=== PATIENT | female | born 1945 | race Caucasian/White ===

== ENCOUNTER → 2017-08-12 | Day surgery (SDC) | payer MEDICARE ==
[~2017-08-12] VITALS: Ht 154.9 cm; Wt 88.0 kg
[~2017-08-12] MED LIST: ACET50CA PO; ACETAMINOPHEN 325 MG TAB PO PRN; ACETYLCHOLINE OPHTH SOLN 1% 2ML (MIOCHOL-E) As Ordered ONE; ADV500INH INH; ALBU83IN INH; AcetaZOLAMIDE 500 MG ER CAP PO ONE; BALANCED SALT IRRIGATION SOLUTION 500ML BAG (FOR OR EYE MACHINE) As Ordered ONE; CEFUROXIME 1MG/0.1ML INTRACAMERAL INJ As Ordered ONE; CENTTAB12 PO; CLOB-49 EX; CLOB0.77 EX; CYCLOPENTOLATE 2% OPHTH SOLN 2ML BTL OD ONE; FISH100049 PO; FURO20TA2 PO; GLUCPOW24 PO; HEALON DUET (HEALON 10MG/ML 0.55ML & HEALON ENDOCOAT 30MG/ML 0.85ML) As Ordered ONE; JANU25TA PO; KETOROLAC 0.5% OPHTH SOLN OD ONE; LIDOCAINE 1% MDV 20ML VIAL SQ PRN; LIDOCAINE 1% SDV 5 ML VIAL As Ordered ONE; LIDOCAINE 3.5 % 1ML OPHTH TOPICAL GEL OU ONE; LOSA100T36 PO; MAGN400C PO; METF500T13 PO; MIDAZOLAM INJ 2 MG/2 ML VIAL (J2250) As Ordered ONE; OFLOXACIN 0.3 % (OCUFLOX) OPTH SOL 5ML OD ONE; PHENYLEPHRINE 2.5% OPHTH SOL 2ML OD ONE; PHENYLEPHRINE HCL 10 % OPHTH. SOL 5ML OD PRN; POVIDONE-IODINE 5% OPHTH PREP SOL 30ML As Ordered ONE; PROAAER10 IN; PROPARACAINE 0.5% OPHTH SOL 15ML OD PRN; TRAV04OPD OD; TRIMETHOBENZAMIDE 300 MG CAP PO PRN; TROPICAMIDE 1% OPHTH SOLN 2ML OD ONE; VITA100T86 PO; VITA1CAP2 PO; [UNRECOGNIZED DRUG - OTHER]; fentaNYL 100 MCG/2 ML INJECTION (J3010) As Ordered ONE
[2017-08-12 08:31] VITALS: BP 124/72
--- NOTE | 2017-08-14 10:44 | RO ---
DATE OF PROCEDURE: 08/12/2017 PREPROCEDURE DIAGNOSIS: Age-related nuclear cataract and open angle glaucoma right eye. POSTPROCEDURE DIAGNOSIS: Age-related nuclear cataract and open angle glaucoma right eye. PROCEDURE: Phacoemulsification and posterior chamber intraocular lens implantation and implantation of CyPass device. Lens used [id number], 21.5 diopter. SURGEON: Leidy Arreola MD WEATHER STRIP MECHANIC: ANESTHESIA: Topical with sedation. DESCRIPTION OF PROCEDURE: The patient was prepped and draped in the usual fashion. A lid speculum was placed between the lids. The eye was fixated. A stab incision was made to the anterior chamber, and 1% non-preserved lidocaine was instilled. Then, viscoelastic was instilled. The eye was re-fixated and a 2.4 keratome was used to make a clear corneal temporal limbal incision. Capsulorrhexis was begun with a 30-gauge bent needle and then carried out in a circular fashion with capsulorrhexis forceps. The lens was hydrodissected, and then the phacoemulsification unit was used to make a groove in the nucleus in two meridians. The nucleus was then cracked into four quadrants. Each quadrant was removed with the phacoemulsification unit. Any remaining cortex was removed with the irrigation and aspiration (I and A) unit. The intraocular lens then was injected into the capsular bag with no difficulty and unfolded nicely and was in good position. The eye was refilled with viscoelastic. A gonial prism was placed on the eye after the head was rotated and the CyPass device was inserted into the eye at the junction just between the sclera spur and the ciliary body. The CyPass was released and tapped into place with no resistance at all. Any remaining viscoelastic was removed. The wound was hydrated. Miochol and cefuroxime were instilled. The patient tolerated the procedure well and went to the recovery room in stable condition.
== END | disposition home or self-care (01) ==
LOC: M SDC 05:46
PROVIDERS: ATTEND Ophthalmology
DX: H25.11 Age-related nuclear cataract, right eye (principal); H40.10X0 Unspecified open-angle glaucoma, stage unspecified; E11.9 Type 2 diabetes mellitus without complications; I11.0 Hypertensive heart disease with heart failure; I50.30 Unspecified diastolic (congestive) heart failure; J45.20 Mild intermittent asthma, uncomplicated; E78.5 Hyperlipidemia, unspecified; E55.9 Vitamin D deficiency, unspecified; M19.90 Unspecified osteoarthritis, unspecified site; M51.9 Unspecified thoracic, thoracolumbar and lumbosacral intervertebral disc disorder; Z87.891 Personal history of nicotine dependence; Z79.899 Other long term (current) drug therapy; Z79.84 Long term (current) use of oral hypoglycemic drugs
CPT/HCPCS: 66183; 66984; C1783; J2250; J3010; V2632

== ENCOUNTER 2017-08-19 09:10 | Day surgery (SDC) | payer MEDICARE ==
[~2017-08-19] VITALS: Ht 154.9 cm; Wt 88.0 kg
[~2017-08-19 09:10] MED LIST changes: -ACETYLCHOLINE OPHTH SOLN 1% 2ML (MIOCHOL-E) As Ordered ONE; -AcetaZOLAMIDE 500 MG ER CAP PO ONE; -BALANCED SALT IRRIGATION SOLUTION 500ML BAG (FOR OR EYE MACHINE) As Ordered ONE; -CEFUROXIME 1MG/0.1ML INTRACAMERAL INJ As Ordered ONE; -CYCLOPENTOLATE 2% OPHTH SOLN 2ML BTL OD ONE; +CYCLOPENTOLATE 2% OPHTH SOLN 2ML BTL OS ONE; -HEALON DUET (HEALON 10MG/ML 0.55ML & HEALON ENDOCOAT 30MG/ML 0.85ML) As Ordered ONE; -KETOROLAC 0.5% OPHTH SOLN OD ONE; -LIDOCAINE 1% MDV 20ML VIAL SQ PRN; -LIDOCAINE 1% SDV 5 ML VIAL As Ordered ONE; -MIDAZOLAM INJ 2 MG/2 ML VIAL (J2250) As Ordered ONE; -OFLOXACIN 0.3 % (OCUFLOX) OPTH SOL 5ML OD ONE; +OFLOXACIN 0.3 % (OCUFLOX) OPTH SOL 5ML OS ONE; -PHENYLEPHRINE 2.5% OPHTH SOL 2ML OD ONE; +PHENYLEPHRINE 2.5% OPHTH SOL 2ML OS ONE; -PHENYLEPHRINE HCL 10 % OPHTH. SOL 5ML OD PRN; +PHENYLEPHRINE HCL 10 % OPHTH. SOL 5ML OS PRN; -POVIDONE-IODINE 5% OPHTH PREP SOL 30ML As Ordered ONE; -PROPARACAINE 0.5% OPHTH SOL 15ML OD PRN; +PROPARACAINE 0.5% OPHTH SOL 15ML OS PRN; -TRIMETHOBENZAMIDE 300 MG CAP PO PRN; -TROPICAMIDE 1% OPHTH SOLN 2ML OD ONE; +TROPICAMIDE 1% OPHTH SOLN 2ML OS ONE; -fentaNYL 100 MCG/2 ML INJECTION (J3010) As Ordered ONE
[2017-08-19] MEDS ORDERED: KETOROLAC 0.5% OPHTH SOLN OS ONE (09:30)
[2017-08-19] MEDS ORDERED: TRIMETHOBENZAMIDE 300 MG CAP PO PRN (09:30)
[2017-08-19] MEDS ORDERED: AcetaZOLAMIDE 500 MG ER CAP PO ONE (09:30)
[2017-08-19] MEDS ORDERED: POVIDONE-IODINE 5% OPHTH PREP SOL 30ML As Ordered ONE (10:34)
[2017-08-19] MEDS ORDERED: ACETYLCHOLINE OPHTH SOLN 1% 2ML (MIOCHOL-E) As Ordered ONE (10:34)
[2017-08-19] MEDS ORDERED: LIDOCAINE 1% SDV 5 ML VIAL As Ordered ONE (10:34)
[2017-08-19] MEDS ORDERED: CEFUROXIME 1MG/0.1ML INTRACAMERAL INJ As Ordered ONE (10:35)
[2017-08-19] MEDS ORDERED: HEALON DUET (HEALON 10MG/ML 0.55ML & HEALON ENDOCOAT 30MG/ML 0.85ML) As Ordered ONE ×2 (10:35→11:23)
[2017-08-19] MEDS ORDERED: fentaNYL 100 MCG/2 ML INJECTION (J3010) As Ordered ONE (11:49)
[2017-08-19] MEDS ORDERED: MIDAZOLAM INJ 2 MG/2 ML VIAL (J2250) As Ordered ONE (11:49)
[2017-08-19 12:10] VITALS: BP 136/62
--- NOTE | 2017-08-19 18:36 | RO ---
DATE OF PROCEDURE: 08/19/2017 PREPROCEDURE DIAGNOSIS: Age-related nuclear cataract and opening of glaucoma left eye. POSTPROCEDURE DIAGNOSIS: Age-related nuclear cataract and opening of glaucoma left eye. PROCEDURE: Phacoemulsification and posterior chamber intraocular lens implantation and implantation of CyPass glaucoma device. SURGEON: Leidy Arreola MD CHAIN HOIST OPERATOR: ANESTHESIA: Topical with sedation DESCRIPTION OF PROCEDURE: The patient was prepped and draped in the usual fashion. A lid speculum was placed between the lids. The eye was fixated. A stab incision was made to the anterior chamber, and 1% non-preserved lidocaine was instilled. Then, viscoelastic was instilled. The eye was re-fixated. A 2.4 mm keratome was used to make a clear corneal temporal limbal incision. Capsulorrhexis was begun with a 30-gauge bent needle and then carried out in a circular fashion with capsulorrhexis forceps. The lens was hydrodissected, and then the phacoemulsification unit was used to make a groove in the nucleus in two meridians. The nucleus was then cracked into four quadrants. Each quadrant was removed with the phacoemulsification unit. Any remaining cortex was removed with the irrigation and aspiration (I and A) unit. The eye was refilled with viscoelastic and a posterior chamber intraocular lens was placed in the capsular bag without difficulty. A little bit of Miochol was instilled into the eye and then the eye was over-inflated with viscoelastic. The patient was rotated away from the surgical site and the gonioprism placed. The trabecular meshwork was easily visualized. There was a considerable amount of PAS. There is one easily clearly clear spot for the CyPass. The device was placed through the incision into the anterior chamber and positioned properly, advanced into the superciliary space and then released from the information technology manager and then tapped into position. There was a little bit of bleeding from the device. The patient was rotated back and the viscoelastic was removed I and A. Miochol and cefuroxime were instilled and the wound was hydrated. Patient tolerated this well and went to recovery room in stable condition.
== END 2017-08-19 12:20 | disposition home or self-care (01) ==
LOC: M SDC 09:10
PROVIDERS: ATTEND Ophthalmology
DX: H25.12 Age-related nuclear cataract, left eye (principal); H40.9 Unspecified glaucoma; I10 Essential (primary) hypertension; E78.00 Pure hypercholesterolemia, unspecified; E11.9 Type 2 diabetes mellitus without complications; R06.02 Shortness of breath; M12.9 Arthropathy, unspecified; M51.9 Unspecified thoracic, thoracolumbar and lumbosacral intervertebral disc disorder; J45.909 Unspecified asthma, uncomplicated; Z79.899 Other long term (current) drug therapy; Z79.84 Long term (current) use of oral hypoglycemic drugs; Z90.710 Acquired absence of both cervix and uterus
CPT/HCPCS: 66183; 66984; C1783; J2250; J3010; V2632

== ENCOUNTER → 2019-06-16 | Outpatient (REF) | payer MEDICARE ==
[~2019-06-16] MED LIST changes: -ACETAMINOPHEN 325 MG TAB PO PRN; -CYCLOPENTOLATE 2% OPHTH SOLN 2ML BTL OS ONE; -LIDOCAINE 3.5 % 1ML OPHTH TOPICAL GEL OU ONE; -LOSA100T36 PO; +LOSA100T50 PO; -OFLOXACIN 0.3 % (OCUFLOX) OPTH SOL 5ML OS ONE; -PHENYLEPHRINE 2.5% OPHTH SOL 2ML OS ONE; -PHENYLEPHRINE HCL 10 % OPHTH. SOL 5ML OS PRN; -PROPARACAINE 0.5% OPHTH SOL 15ML OS PRN; -TROPICAMIDE 1% OPHTH SOLN 2ML OS ONE; +VITA-183 PO; -VITA1CAP2 PO
== END ==
LOC: M LAB REF 17:25
PROVIDERS: ATTEND Internal Medicine
DX: R53.83 Other fatigue (principal)

== ENCOUNTER 2020-05-23 15:59 | Emergency (ER) | payer MEDICARE ==
[~2020-05-23] VITALS: Ht 154.9 cm; Wt 84.4 kg
[2020-05-23] MEDS ORDERED: MONT10TA4 PO (16:21)
[2020-05-23] MEDS ORDERED: ATOR40TA75 PO (16:21)
--- NOTE | 2020-05-23 17:19 | REPVR ---
PROCEDURE INFORMATION: Exam: XR Abdomen, 1 View Exam date and time: 05/23/2020 5:11 PM Age: 75 years old Clinical indication: Abdominal pain; Additional info: L abd pain R/O constipation TECHNIQUE: Imaging protocol: XR of the abdomen. Views: Frontal supine view of the abdomen. 1 View. COMPARISON: No relevant prior studies available. FINDINGS: Gastrointestinal tract: Normal. No bowel dilation. Organs: There has been a cholecystectomy. Bones/joints: Levoscoliosis. IMPRESSION: There has been a cholecystectomy. Electronically signed by: Mart Simon On 05/23/2020 17:18:23 PM
[2020-05-23 17:21] LABS: BASO # 0.1 10^3/uL (0.0-0.2); BASO % 0.6 % (0.0-1.0); EOS # 0.3 10^3/uL (0.0-0.5); EOS % 3.8 % (0.0-3.0); HEMATOCRIT 40.2 % (36.0-47.0); HEMOGLOBIN 12.5 g/dl (12.0-15.5); LYMPH % 25.3 % (24.0-44.0); MEAN CORPUSCULAR HEMOGLOBIN 27.1 pg (27.0-33.0); MEAN CORPUSCULAR HGB CONC 31.1 g/dl (32.0-36.5); MEAN CORPUSCULAR VOLUME 87.2 fl (80.0-96.0); MONO # 0.9 10^3/uL (0.0-0.8); NEUTROPHILS # 4.6 10^3/uL (1.5-8.5); PLATELET COUNT, AUTOMATED 235 10^3/uL (150-450); RED BLOOD COUNT 4.61 10^6/uL (4.00-5.40); WHITE BLOOD COUNT 7.8 10^3/uL (4.0-10.0)
[2020-05-23 17:41] LABS: ALBUMIN 3.9 GM/DL (3.2-5.2); ALT/SGPT 24 U/L (12-78); BILIRUBIN,DIRECT < 0.1 MG/DL (0.0-0.2); BILIRUBIN,TOTAL 0.3 MG/DL (0.2-1.0); BLOOD UREA NITROGEN 18 MG/DL (7-18); CALCIUM LEVEL 9.6 MG/DL (8.8-10.2); CARBON DIOXIDE LEVEL 24 MEQ/L (21-32); CHLORIDE LEVEL 112 MEQ/L (98-107); CREATININE FOR GFR 0.62 MG/DL (0.55-1.30); GLOMERULAR FILTRATION RATE > 60.0 (>39); GLUCOSE, FASTING 116 MG/DL (70-100); LIPASE 129 U/L (73-393); SODIUM LEVEL 144 MEQ/L (136-145); TOTAL PROTEIN 6.7 GM/DL (6.4-8.2)
[2020-05-23] MEDS ORDERED: MAGNESIUM CITRATE 300 ML BTL PO ONE (18:00)
[2020-05-23 18:04] VITALS: BP 163/86
== END 2020-05-23 18:11 | disposition home or self-care (01) ==
LOC: M ED 15:59
DX: K59.00 Constipation, unspecified (principal); E11.9 Type 2 diabetes mellitus without complications; I10 Essential (primary) hypertension; E78.5 Hyperlipidemia, unspecified; F41.9 Anxiety disorder, unspecified; Z79.84 Long term (current) use of oral hypoglycemic drugs; Z79.899 Other long term (current) drug therapy

== ENCOUNTER → 2020-05-31 | Outpatient (CLI) | payer MEDICARE ==
[~2020-05-31] MED LIST changes: +ATOR40TA75; +GASTROGRAFIN SOLUTION 30ML (Q9963) As Ordered ONE; +ISOVUE-370 76% 100ML VIAL As Ordered ONE; +MONT10TA4
--- NOTE | 2020-06-05 10:32 | REP ---
CT ABDOMEN AND PELVIS WITH INTRAVENOUS (IV) AND ORAL CONTRAST HISTORY: Left lower quadrant pain. COMPARISON: CT study 11/15/2010. CT CONTRAST DOSE: 100 mL of intravenous Isovue-[address] FINDINGS: Digital preliminary burr bench hand radiographs demonstrate clips in the right upper quadrant post cholecystectomy. Bowel gas pattern is normal. Lung window settings demonstrate that the lung bases are essentially clear. No evidence of pleural effusion or upper abdominal ascites. The gallbladder is surgically absent. The common bile duct measures 7.5 mm, which is normal post cholecystectomy. No focal liver lesion is seen. The spleen is normal in size and homogeneous in texture. Normal adrenal glands are seen. No mass or cyst is seen in the pancreas. There are bilateral parapelvic renal cysts. No hydronephrosis is seen. The largest parapelvic cyst is in the right kidney measuring 3.5 cm. No renal mass lesion is observed. Normal caliber aorta with vascular calcification. Pelvic CT images demonstrate extensive diverticulosis affecting the sigmoid colon. There is mild mural thickening along the left lateral wall of the sigmoid colon and there is mild induration of the left lateral pelvic side wall adjacent to this loop of sigmoid colon consistent with mild diverticulitis. There is no evidence of abscess or free air. No abnormal fluid collection is seen there or elsewhere in the abdomen or pelvis. No pelvic mass or adenopathy is seen. The uterus is surgically absent. The urinary bladder is unremarkable. The appendix is not confidently identified, but there is no inflammatory change adjacent to the cecum to suggest appendicitis. No bony destructive lesion. IMPRESSION: Extensive diverticulosis affecting the sigmoid colon with changes consistent with mild diverticulitis. No abscess or free air. Parapelvic renal cysts. Post cholecystectomy and hysterectomy. [facility]
== END ==
LOC: M RAD 14:05
PROVIDERS: ATTEND Internal Medicine
DX: K57.92 Diverticulitis of intestine, part unspecified, without perforation or abscess without bleeding (principal); R10.32 Left lower quadrant pain; Z90.49 Acquired absence of other specified parts of digestive tract; N28.1 Cyst of kidney, acquired; Z90.79 Acquired absence of other genital organ(s)
CPT/HCPCS: 74177; Q9963; Q9967

== ENCOUNTER → 2020-06-22 | Outpatient (REF) | payer MEDICARE ==
[~2020-06-22] MED LIST changes: +AMLO1TAB24 PO; -ATOR40TA75; +ATOR40TA75 PO; +CENT1TAB PO; +CIDA500T2 PO; -GASTROGRAFIN SOLUTION 30ML (Q9963) As Ordered ONE; -ISOVUE-370 76% 100ML VIAL As Ordered ONE; +LEVO500T3 PO; -MONT10TA4; +MONT10TA4 PO
== END ==
LOC: M LAB REF 16:25
PROVIDERS: ATTEND Internal Medicine
DX: N76.0 Acute vaginitis (principal)

== ENCOUNTER 2020-06-27 13:35 | Emergency (ER) | payer MEDICARE ==
[~2020-06-27] VITALS: Ht 154.9 cm; Wt 83.2 kg
[~2020-06-27 13:35] MED LIST changes: -AMLO1TAB24 PO; -CENT1TAB PO; -CIDA500T2 PO; -LEVO500T3 PO
[2020-06-27] MEDS ORDERED: CENT1TAB PO (14:52)
[2020-06-27] MEDS ORDERED: LEVO500T3 PO (14:52)
[2020-06-27] MEDS ORDERED: AMLO1TAB24 PO (14:52)
[2020-06-27] MEDS ORDERED: CIDA500T2 PO (14:52)
[2020-06-27 15:15] VITALS: BP 142/72
== END 2020-06-27 15:39 | disposition left against medical advice (07) ==
LOC: M ED 13:35
DX: Z53.21 Procedure and treatment not carried out due to patient leaving prior to being seen by health care provider (principal)

== ENCOUNTER → 2020-09-07 | Outpatient (CLI) | payer MEDICARE ==
[~2020-09-07] MED LIST changes: +AMLO1TAB24 PO; +CENT1TAB PO; +CIDA500T2 PO; +LEVO500T3 PO; +META0.52 PO; +METF-877 PO; +MILKSUS3 PO; -MONT10TA4 PO; +MONT5TAB2 PO
== END ==
LOC: M LABSMTC 09:37
PROVIDERS: ATTEND Anesthesiology
DX: Z01.812 Encounter for preprocedural laboratory examination (principal); Z20.822 Contact with and (suspected) exposure to COVID-19

== ENCOUNTER → 2020-10-05 | Outpatient (CLI) | payer MEDICARE ==
[~2020-10-05] MED LIST changes: +MONT10TA10 PO; -MONT5TAB2 PO
== END ==
LOC: M LABSMTC 09:59
PROVIDERS: ATTEND Anesthesiology
DX: Z01.812 Encounter for preprocedural laboratory examination (principal); Z20.822 Contact with and (suspected) exposure to COVID-19

== ENCOUNTER 2020-10-10 07:30 | Day surgery (SDC) | payer MEDICARE ==
[~2020-10-10] VITALS: Ht 154.9 cm; Wt 85.3 kg
[~2020-10-10 07:30] MED LIST changes: +NS 1,000 ML IV ONE
--- OUTSIDE RECORDS SUMMARY | 2020-10-10 07:37 | CCD | Continuity of Care Document ---
Author Author Nimco QUINTANILLA Organization Unknown Address [phone] [address] Phone [phone] Care Team Providers Care Fish Farmer Name Role Phone Karin Quintanilla DO AUTM Unavailable Leidy Arreola MD AUTM Unavailable TitoTheo reis DO AUTM [phone] Problems Active Problems Provider Date Type 2 diabetes mellitus Karin Quintanilla DO Onset: 08/11/20 11 Asthma without status asthmaticus Karin Quintanilla DO Onset: 08/11/2011 Chronic diastolic heart failure Karin Quintanilla DO Onset: 1 10/12/2010 Hyperlipidemia Karin Quintanilla DO Onset: 08/11/2011 Social History Type Date Description Comments Sex Unknown ETOH Use Has consumed alcohol in the past SOBER SINCE THE AGE OF 36 Tobacco Use Start: Unknown End: Unknown Patient is a former smoker SOCIALLY X 3 YRS, QUIT @ AGE 36 Allergies, Adverse Reactions, Alerts Active Allergies Reaction Severity Comments Date Levofloxacin Difficulty breathing, Hives 06/27/2020 Inactive Allergies NKDA 09/05/2010 Medications Active Medications SIG Qnty Indications Ordering Provide r Date Miralax 17GM/Scoop Powder use 17grams daily as needed for constipation in juice or water. 30Oz Karin Quintanilla DO 07/16/2020 Diflucan 150mg Tablets 1 by mouth may repeat in 3 days 2tabs Karin Quintanilla DO 06/22/2020 Amlodipine Besylate 5mg Tablets 1 by mouth every day 90tabs Karin Quintanilla DO 06/22/2020 Monistat 3 4% Cream 1 applicator-full per vagina daily x 7 days. 2units Karin Quintanilla DO 0 Metronidazole 500mg Tablets one by mouth three times a day for 2 days 6tabs Karin Quintanilla DO 01/2020 Freestyle Lite Blood Glucose Monitoring System Device use as directed dx e11.19 1un Karin Denny,DO 01/13/2019 Freestyle Lite Test Strips test twice a day E11.9 200un Karin Quintanilla,DO 01/13/2019 Freestyle Unistick II Lancets Mis c use twice a day dx: e11.9 200un Karin Denny,DO 01/13/2019 [place]-3 Krill Oil 500mg Capsules 1 by mouth every at night 30caps Karinsameer Quintanilla,DO 12/07/2018 Acetaminophen ER 650mg Tablets ER 1 by mouth every 8 hours as needed for pain 60tabs Karin Bog ,DO 12/07/2018 Atorvastatin Calcium 40mg Tablets Take One Tablet By Mouth Every Day 30tabs Karin Quintanilla,DO 2018 Januvia 25mg Tablets Take One Tablet By Mouth Every Day 30tabs Karin Quintanilla,DO 01/08/2017 Vitamin E 400Unit Capsules 1 by mouth every day Karin Quintanilla,DO 06/17/2016 Vitamin B12 1000mcg Tablets 1 by mouth every day Karin Quintanilla,DO 06/17/2016 Magnesium Oxide 400(241.3Mg) mg Ta blets 2 po qam and 1 po qpm 90tabs Karin Quintanilla,DO 06/17/2016 Furosemide 20mg Tablets 1 by mouth every day as needed for edema 30ta Karin Quintanilla,DO 01/30/20 16 Nebulizer Compressor Misc as directed dx: 493.90 Asthma 1units Karin Quintanilla,DO 11/21/2013 Proair HFA 108(90Base) mcg/Act Aer osol 2 puffs four times a day or as needed for shortness of breath or wheezing 2un Karin Quintanilla,DO 11/21/2013 Losartan Potassium 100mg Tablets Take One Tablet By Mouth Every Day 30tabs Karin Quintanilla,DO 2013 Advair Diskus 500-50mcg/Dose Aeros ol Inhale One puff By Mouth Twice A Day 60units Karin Quintanilla ,DO 02/12/2012 Levocetirizine Dihydrochloride 5mg Tablets take one by mouth at at bedtime as needed 30tabs Karin Quintanilla,DO 01/12/2012 Vitamin D3 1000Unit Capsules 1 po qd Karin Quintanilla DO 10/02/2010 Centrum Silver One PO Daily Karin Quintanilla DO 08/24 Glucosamine 1500mg Tablets 1 po bid Karin Quintanilla DO 09/05/2010 Albuterol Sulfate (2 .5mg/3ML) 0.083% Nebulizer use via aerosol neb four times a day 120units Gualberto Quintanilla DO 09/05/2010 Ipratropium [place] 0.02% Solution qid via nebulizer j44.9 5Boxhussein Soria MD 09/05/19 11 Metformin HCL 500mg Tablets Take 2 Tablets By Mouth Every Morning And 1 Tablet Every Evening 90tabs Karin Quintanilla DO 09/05/2010 Montelukast Sodium 10mg Tablets take one tablet by mouth at bedtime 30tabs Karin Quintanilla DO Spiriva Respimat 2.5mcg/Act Aeroso l 2 inhales a day Unknown History Medications Levofloxacin 500mg Tablets one by mouth for 5 days 5tabs Karin Quintanilla DO 06/26/2020 - 11/2019 Levofloxacin 500mg Tablets one by mouth for 2 days 4tabs Karin Quintanilla DO 05/29/2020 - 11/2019 Medications Administered in Office Medication SIG Qnty Indications Ordering Provider Date Administration Of Flu Vaccine Inj ection Karin Quintanilla DO 06/07/2012 Immunizations CPT Code Status Date Vaccine Lot # U-Flu Given 06/16/2019 Influenza,Unspecified [id number] Given 02/02/2019 Shingrix 10884 Given 08/23/2018 Shingrix U-PneuC Given 05/19/2018 Prevnar 13 U-Flu Given 05/19/2018 Influenza,Unspecified [id number] Given 06/07/2012 Fluvirin Virus Vaccine [id number] 01 [id number] Given 06/07/2012 Pneumovax 23 35625 Refused 07/14/2017 Influenza Vaccin e Quadrivalent Preser/Antibiotic Free Im Use Vital Signs Date Vital Result Comment 07/16/2020 10:09am BP Systolic 138 mmHg BP Diastolic 74 mmHg Heart Rate 94 /min Height 60 inches 5'0" Weight 182.00 lb O2 % BldC Oximetry 97 % RM Air BMI (Body Mass Index) 35.5 kg/m2 06/22/2020 1:40pm BP Systolic 162 mmHg RT Arm BP Diastolic 84 mmHg RT Arm Heart Rate 88 /min Height 60 inches 5'0" Weight 186.00 lb BMI (Body Mass Index) 36.3 kg/m2 Results Test Acquired Date Facility Test Result H/L Range Note Laboratory test finding 06/22/[address] [address] [phone] Genital Culture FULL REPORT IN L <SEE NOTE> Normal 1 Ua W/ Reflex To Culture 05/23/[address] [address] [phone] Appearance, Urine RFX CLEAR Normal Clear Color, Urine RFX STRAW Normal Yellow PH,Urine RFX 6.0 units Normal 5.0-9.0 Specific [place] Ur Auto RFX 1.003 Normal 1.002-1.035 Protein, Urine Auto RFX NEGATIVE mg/dL Normal Negative Glucose, Urine (Ua) Auto RFX NEGATIVE mg/dL Normal Negative Ketone, Urine Auto RFX NEGATIVE mg/dL Normal Negative Urobilinogen, Urine Auto RFX 0.2 mg/dL Normal 0.0-2.0 Bilirubin, Urine Auto RFX NEGATIVE Normal Negative Nitrite, Urine Auto RFX NEGATIVE Normal Negative Leukocyte Esterase Ur Auto RFX 3+ High Negative Blood, Urine Blood RFX NEGATIVE Normal Negative WBC, Urine Auto RFX 10 /HPF High 0-3 RBC, Urine Auto RFX 3 /HPF Normal 0-3 Bacteria, Urine Auto RFX 1+ High Negative Squam Epithelial Cell Ur Aurfx 1 /HPF Normal 0-6 Hyaline Cast, Urine Auto RFX 0 /LPF Normal 0-1 CBC With Differential 05/23/[address] [address] [phone] White Blood Count 7.8 10 Normal 4.0-10.0 Red Blood Count 4.61 10 Normal 4.00-5.40 Hemoglobin 12.5 g/dL Normal 12.0-15.5 Hematocrit 40.2 % Normal 36.0-47.0 Mean Corpuscular Volume 87.2 fl Normal 80.0-96.0 Mean Corpuscular Hemoglobin 27.1 pg Normal 27.0-33.0 Mean Corpuscular HGB Conc 31.1 g/dL Low 32.0-36.5 Red Cell Distribution Width 14.0 % Normal 11.5-14.5 Platelet Count, Automated 235 10 Normal 150-450 Neutrophils % 59.0 % Normal 36.0-66.0 Lymph % 25.3 % Normal 24.0-44.0 Glades % 11.0 % High 0.0-5.0 Eos % 3.8 % High 0.0-3.0 Baso % 0.6 % Normal 0.0-1.0 Immature Granulocyte % 0.3 % Normal 0-3.0 Nucleated Red Blood Cell % 0.0 % Normal 0-0 Neutrophils # 4.6 10 Normal 1.5-8.5 Lymph # 2.0 10 Normal 1.5-5.0 Glades # 0.9 10 High 0.0-0.8 Eos # 0.3 10 Normal 0.0-0.5 Baso # 0.1 10 Normal 0.0-0.2 [facility] Profile [facility] [address] [place], [place] [id number] [phone] Ast/Sgot 17 U/L Normal 7-37 Alt/SGPT 24 U/L Normal 12-78 Alkaline Phosphatase 93 U/L Normal 45-117 Bilirubin,Total 0.3 mg/dL Normal 0.2-1.0 Bilirubin,Direct < 0.1 mg/dL Normal 0.0-0.2 Total Protein 6.7 GM/DL Normal 6.4-8.2 Albumin 3.9 GM/DL Normal 3.2-5.2 Albumin/Globulin Ratio 1.4 Normal 1.2-2.2 Basic Metabolic Profile 05/23/2020 [facility] [address], [place] [id number] [phone] Glucose, Fasting 116 mg/dL High 70-100 Blood Urea Nitrogen 18 mg/dL Normal 7-18 Creatinine For GFR 0.62 mg/dL Normal 0.55-1.30 Glomerular Filtration Rate > 60.0 Normal >39 2 Sodium Level 144 mEq/L Normal 136-145 Potassium Serum 4.0 mEq/L Normal 3.5-5.1 Chloride Level 112 mEq/L High 98-107 Carbon Dioxide Level 24 mEq/L Normal 21-32 Anion Gap 8 mEq/L Normal 8-16 Calcium Level 9.6 mg/dL Normal 8.8-10.2 Laboratory test finding 05/23/2020 [facility] [address] [place] [address] [phone] Lipase 129 U/L Normal 73-393 Reflex Urine Culture 05/23/2020 [facility] [address], [place] [id number] [phone] Reflex Urine Culture FULL REPORT IN L <SEE NOTE> Norm al 3 A1c 04/05/2020 [facility] In Flight Refueling Operator: Dr David Soria [place], [place] [id number] [phone] Hba1c 6.8 g/dL High 4.8 - 5.6 4 Est Avg Glucose 148 mg/dL High 60 - 110 Basic Metabolic Panel 04/05/2020 [facility] In Flight Refueling Operator: Dr David Soria [place], [place] [id number] [phone] Glucose 95 mg/dL 74 - 99 5 BUN 23 mg/dL High 7 - 18 Creatinine 0.8 mg/dL 0.6 - 1.3 Sodium 145 mEq/L 136 - 145 Potassium 4.4 mEq/L 3.5 - 5.1 Chloride 106 mEq/L 98 - 107 Carbon Dioxide 31 mEq/L 21 - 32 Calcium 9.4 mg/dL 8.5 - 10.1 GFR >= 60 mL/min >60 GFR >= 60 mL/min >60 6 1 FULL REPORT IN LAB NOTES (eC W and [facility]). ORGANISM 1: STREP AGALACTIAE GROUP B QUANTITY OF GROWTH HEAVY ORGANISM 1: STREP AGALACTIAE GROUP B STREP AGALACTIAE GROUP B: REACTION ICR (INDUCIBLE CC RESISTANCE) IV ICR TEST RESULT TETRACYCLINE PO 250 mg qid >=16 R PENICILLIN G IV 1 mu q6H 0.12 S PENICILLIN G IV 1 mu q6h 0.12 S PENICILLIN G PO 250mg q6h fasting 0.12 S AMPICILLIN IV 500mg q6h <=0.25 S AMPICILLIN PO 500mg q6h fasting <=0.25 S ERYTHROMYCIN IV 500mg q6h 2 R ERYTHROMYCIN PO 500mg q6h 2 R LEVOFLOXACIN IV 500mg qd 0.5 S LEVOFLOXACIN PO 250mg qd 0.5 S LEVOFLOXACIN PO 500mg qd 0.5 S VANCOMYCIN IV 500mg q8h 0.5 S MOXIFLOXACIN (AVELOX) IV 400MG QD 0.12 S MOXIFLOXACIN (AVELOX) PO 400MG QD 0.12 S CEFTRIAXONE IV 1gm q24h <=0.12 S CEFOTAXIME IV 1gm q8h <=0.12 S An isolate with a (+) POSITIVE ICR test is considered CLINDAMYCIN RESISTANT; however, clindamycin may still be effective in some patients. An isolate with a (-) NEGATIVE ICR test is considered CLIDAMYCIN SENSITIVE. 2 Units are mL/min/1.73 m2 Chronic Kidney Disease Staging per NKF: Stage I & II GFR >=60 Normal to Mildly Decreased Stage III GFR 30-59 Moderately Decreased Stage IV GFR 15-29 Severely Decreased Stage V GFR <15 Very Little GFR Left ESRD GFR <15 on RADIO PROGRAM CHECKER 3 FULL REPORT IN LAB NOTES (eC W and [place]). NO GROWTH CLINICAL SIGNIFICANCE 1 ORGANISM 4 Lab Result Notes: Pre-Diabetes 5.7 - 6.4 % Diabetes = or > 6.5% 5 100-125 mg/dL PRE-DIABET ES/FASTING >126 mg/dL DIABETES/FASTING 6 CHRONIC KIDNEY DISEASE STAGI NG PER NKF STAGE I & II GFR >= 60 NORMAL TO MILDLY DECREASED STAGE III GFR 30-59 MODERATELY DECREASED STAGE IV GFR 15-29 SEVERELY DECREASED STAGE V GFR <15 VERY LITTLE GFR LEFT ESRD GFR <15 ON RADIO PROGRAM CHECKER Procedures Date Code Description Status 07/23/2018 [id number] Diabetic Retinal Eye Exam Comple [facility] 12/29/2017 [id number] Bone Mineral Density Test Comple [facility] 12/29/2017 [id number] Mammogram Completed 08/20/2017 [id number] Diabetic Retinal Eye Exam Comple [facility] 06/12/2017 [id number] Diabetic Retinal Eye Exam Comple [facility]ory 05/29/2017 [id number] Diabetic Retinal Eye Exam Comple [facility] 02/25/2017 [id number] Diabetic Retinal Eye Exam Comple [facility] 02/20/2017 [id number] Diabetic Retinal Eye Exam Comple [facility] 01/14/2016 [id number] Colonoscopy Completed 03/28/2015 [id number] Diabetic Retinal Eye Exam Comple [facility] 02/20/2014 [id number] Diabetic Retinal Eye Exam Comple [facility] 02/28/2013 [id number] Diabetic Retinal Eye Exam Comple [facility] 10/27/2011 [id number] Diabetic Retinal Eye Exam Comple [facility] 09/23/2010 [id number] Bone Mineral Density Test Comple [facility] 09/23/2010 [id number] Mammogram Completed Medical Devices Description No Information Available Encounters Type Date Location Provider Dx Diagnosis [facility] Visit [facility] N76.0 Acute vaginitis J45.20 Mild intermittent asthma, un complicated I50.32 Chronic diastolic (congestiv e) heart failure E11.9 Type 2 diabetes mellitus wit hout complications Office Visit 06/07/2020 1[facility]p [facility] K57.92 Dvtrcli of intest, part unsp, w/o perf or abscess w/o bleed J45.20 Mild intermittent asthma, un complicated I50.32 Chronic diastolic (congestiv e) heart failure E11.9 Type 2 diabetes mellitus wit hout complications J30.9 Allergic rhinitis, unspecifi ed Office Visit 05/29/2020 3:30p [facility] R10.32 Left lower quadrant pain J45.20 Mild intermittent asthma, un complicated I50.32 Chronic diastolic (congestiv e) heart failure E11.9 Type 2 diabetes mellitus wit hout complications E78.5 Hyperlipidemia, unspecified Office Visit 04/05/2020 11[facility] Z00.00 Encntr for general adult medical exam w/o abnormal findings J45.20 Mild intermittent asthma, un complicated I50.32 Chronic diastolic (congestiv e) heart failure E11.9 Type 2 diabetes mellitus wit hout complications E78.5 Hyperlipidemia, unspecified J30.9 Allergic rhinitis, unspecifi ed Z13.89 Encounter for screening for other disorder Office Visit 04/05/2020 11:00a [place] [facility] Hend[facility] Nurse #2 J45.20 Mild intermittent asthma, uncomplicated I50.32 Chronic diastolic (congestiv e) heart failure E11.9 Type 2 diabetes mellitus wit hout complications E78.5 Hyperlipidemia, unspecified Assessments Date Code Description Provider 07/16/2020 K57.92 Diverticulitis of in testine, part unspecified, without perforation or abscess without bleeding Karin Quintanilla DO 07/16/2020 I50.32 Chronic diastolic (congestive) h eart failure Karin Quintanilla,DO 07/16/2020 J45.20 Mild intermittent asthma, uncomp licated Karin Quintanilla,DO 07/16/2020 I11.0 Hypertensive heart disease with heart failure Karin Quintanilla,DO 07/16/2020 K58.1 Irritable bowel syndrome with co nstipation Karin Quintanilla,DO 06/22/2020 N76.0 Acute vaginitis Karin Quintanilla,DO 06/22/2020 J45.20 Mild intermittent asthma, uncomp licated Karin Villags,DO 06/22/2020 I50.32 Chronic diastolic (congestive) h eart failure Karin Quintanilla,DO 06/22/2020 E11.9 Type 2 diabetes mellitus without complications Karin Quintanilla,DO 06/07/2020 K57.92 Diverticulitis of in testine, part unspecified, without perforation or abscess without bleeding Karin Quintanilla,DO 06/07/2020 J45.20 Mild intermittent asthma, uncomp licated Karin Quintanilla,DO 06/07/2020 I50.32 Chronic diastolic (congestive) h eart failure Karin Quintanilla,DO 06/07/2020 E11.9 Type 2 diabetes mellitus without complications Karin Quintanilla,DO 06/07/2020 J30.9 Allergic rhinitis, unspecified L cirilo Quintanilla,DO 05/29/2020 R10.32 Left lower quadrant pain Karin wharton,DO 05/29/2020 J45.20 Mild intermittent asthma, uncomp licated Karin Quintanilla,DO 05/29/2020 I50.32 Chronic diastolic (congestive) h eart failure Karin Quintanilla,DO 05/29/2020 E11.9 Type 2 diabetes mellitus without complications Karin Quintanilla,DO 05/29/2020 E78.5 Hyperlipidemia, unspecified Gualberto Quintanilla,DO 04/05/2020 J45.20 Mild intermittent asthma, uncomp licated Karin Quintanilla,DO 04/05/2020 J45.20 Mild intermittent asthma, uncomp licated Nurse #2 04/05/2020 I50.32 Chronic diastolic (congestive) h eart failure Krain Quintanilla,DO 04/05/2020 I50.32 Chronic diastolic (congestive) h eart failure Nurse #2 04/05/2020 E11.9 Type 2 diabetes mellitus without complications Karin Quintanilla,DO 04/05/2020 E11.9 Type 2 diabetes mellitus without complications Nurse #2 04/05/2020 E78.5 Hyperlipidemia, unspecified Gualberto sameer Quintanilla,DO 04/05/2020 E78.5 Hyperlipidemia, unspecified Nurs e #2 04/05/2020 Z00.00 Encounter for genera l adult medical examination without abnormal findings Karin Quintanilla DO 04/05/2020 J45.20 Mild intermittent asthma, uncomp licated Karin Quintanilla,DO 04/05/2020 I50.32 Chronic diastolic (congestive) h eart failure Karin Quintanilla, 04/05/2020 E11.9 Type 2 diabetes mellitus without complications Karin Quintanilla,DO 04/05/2020 E78.5 Hyperlipidemia, unspecified Gualberto sameer Quintanilla,DO 04/05/2020 J30.9 Allergic rhinitis, unspecified L aryansameer Denny,DO 04/05/2020 Z13.89 Encounter for screening for othe r disorder Karin Quintanilla DO Plan of Treatment Future Appointment(s):* 10/09/2020 8:40 am - Karin Quintanilla DO at [facility] 07/16/2020 - Karin Quintanilla DO* K57.92 Diverticulitis of intestine, part unspecified, without perforation or abscess without bleeding * I50.32 Chronic diastolic (congestive) heart failure * J45.20 Mild intermittent asthma, uncomplicated * I11.0 Hypertensive heart disease with heart failure * K58.1 Irritable bowel syndrome with constipation * All * New Medication:* Miralax 17 GM/Scoop - use 17grams daily as needed for constipation in juice or water. Functional Status Description No Information Available Mental Status Description No Information Available Referrals Refer to Dr Reason for Referral Status Appt Date Efren Preciado MD CONSULT FOR SCREENING EGD/CO LONOSCOPY DX: EPIGASTRIC PAIN, CHANGE IN BOWELS Patient Notified 09/06/2020 [address] [id number] [phone]
--- OUTSIDE RECORDS SUMMARY | 2020-10-10 07:37 | CCD | Continuity of Care Document ---
Author Author Nimco PRECIADO M.D. Organization Unknown Address [address] [place] [address] Phone [phone] Care Team Providers Care Hydraulic Punch Press Operator Name Role Phone Karin Baldwin DO AUTM [phone] Problems Active Problems Provider Date Screening for malignant neoplasm of colon Efren campoverde M.D. Onset: 12/21/2015 Social History Type Date Description Comments Sex Unknown ETOH Use Denies alcohol use Tobacco Use Start: Unknown End: Unknown Patient is a former smoker Allergies, Adverse Reactions, Alerts Description No Known Drug Allergies Medications Active Medications SIG Qnty Indications Ordering Provide r Date Sutab [id number] Tablets as directed 1box Efren Preciado M.D. 09/06/2020 Losartan Potassium 100mg Tablets Unknown Magnesium Oxide 400(241.3Mg) mg Ta blets 1 by mouth three times a day Unknown Vitamin E 1000Unit Capsules 1 by mouth every day Unknown Centrum Silver Ultra Womens Table ts daily Unknown Glucosamine Chondroitin 1500 Complex 1500Com Capsules 1 by mouth every night Unknown Albuterol Sulfate (2 .5mg/3ML) 0.083% Nebulizer Unknown Atorvastatin Calcium 40mg Tablets Take One Tablet By Mouth Every Day Unknown Fluticasone Propionate/Salmeterol Diskus 500-50mcg/Dose Aerosol Inhale One puff By Mouth Twice A Day Unknown Metformin HCL 500mg Tablets Take 2 Tablets By Mouth Every Morning And 1 Tablet Every Evening Unknown Montelukast Sodium 10mg Tablets Take One Tablet By Mouth Every Day AT Bedtime Unknown Biotin 1mg Capsules Unknown Aerosol Powder Breath Activated 500-50mcg Unknown Krill Oil Anza-3 500mg Capsules Unknown Vitamin C 500mg Capsules Unknown Immunizations Description No Information Available Vital Signs Date Vital Result Comment 09/06/2020 9:23am Height 61 inches 5'1" Weight 186.00 lb BP Systolic 135 mmHg BP Diastolic 82 mmHg Heart Rate 89 /min BMI (Body Mass Index) 35.1 kg/m2 Weight 84.370 kg Body Temperature 97.3 F 12/21/2015 11:48am Height 61 inches 5'1" Weight 206.00 lb BP Systolic 121 mmHg BP Diastolic 87 mmHg Heart Rate 98 /min BMI (Body Mass Index) 38.9 kg/m2 Weight 93.442 kg Results Description No Information Available Procedures Description No Information Available Medical Devices Description No Information Available Encounters Type Date Location Provider Dx Diagnosis Office Visit 09/06/2020 9:15a Main Office Efren Preciado M.D. Z 86.010 Personal history of colonic polyps Assessments Date Code Description Provider 09/06/2020 Z86.010 Personal history of colonic poly ps Efren Preciado M.D. Plan of Treatment Future Appointment(s):* 10/10/2020 9:00 am - Efren Preciado M.D. at Main Office 09/06/2020 - Efren Preciado M.D.* Z86.010 Personal history of colonic polyps* Comments:* 75 yo wf who presents for a h/o colonic polyps. Last scope was in 2014. No family h/o colon cancer. No c/o abdominal pain, change in bowel habits, or rectal bleeding. Comorbid issues of Asthma. No c/o chest pain. Lower abdominal pain cramps, constipation for 1 yr.Plan:1.Schedule patient for Colonoscopy. 2. Informed consent given.3. Advised to stop asa, plavix,and anticoagulation 3 to 7 days prior to the procedures. Functional Status Description No Information Available Mental Status Description No Information Available Referrals Description No Information Available
--- OUTSIDE RECORDS SUMMARY | 2020-10-10 07:37 | CCD | Continuity of Care Document ---
Author Author Nimco QUINTANILLA Organization Unknown Address [address] [address] Phone [phone] Care Team Providers Care Caustic Mixer Name Role Phone Karin Quintanilla DO AUTM Unavailable Leidy Arreola MD AUTM Unavailable TitoTheo reis DO AUTM [phone] Problems Active Problems Provider Date Type 2 [...] day dx: e11.9 200un Karin Denny,DO 01/13/2019 [place]-3 Krill Oil 500mg Capsules 1 by mouth [...] day 120units Gualberto Quintanilla DO 09/05/2010 Ipratropium [place] 0.02% Solution qid via nebulizer j44.9 5Boxhussein [...] Vaccine Lot # U-Flu Given 06/16/2019 Influenza,Unspecified [id number] Given 02/02/2019 Shingrix 00024 Given 08/23/2018 Shingrix U-PneuC Given 05/19/2018 Prevnar 13 U-Flu Given 05/19/2018 Influenza,Unspecified [id number] Given 06/07/2012 Fluvirin Virus Vaccine [id number] 01 [id number] Given 06/07/2012 Pneumovax 23 [id number] Refused 07/14/2017 Influenza Vaccin e Quadrivalent Preser/Antibiotic [...] Date Facility Test Result H/L Range Note Basic Metabolic Panel 07/16/2020 [facility] Solar Fabrication Technician: [place] [address] [phone] Glucose 147 mg/dL High 74 - 99 1 BUN 14 mg/dL 7 - 18 Creatinine 0.8 mg/dL 0.6 - 1.3 Sodium 143 mEq/L 136 - 145 Potassium 4.2 mEq/L 3.5 - 5.1 Chloride 104 mEq/L 98 - 107 Carbon Dioxide 32 mEq/L 21 - 32 Calcium 9.9 mg/dL 8.5 - 10.1 GFR >= 60 mL/min >60 GFR >= 60 mL/min >60 2 Laboratory test finding 06/22/2020 [place] [id number] [phone] Genital Culture FULL REPORT IN L <SEE NOTE> Normal 3 Ua W/ Reflex To Culture 05/23/[address] [address] [phone] Appearance, Urine RFX CLEAR Normal Clear Color, Urine RFX STRAW Normal Yellow PH,Urine RFX 6.0 units Normal 5.0-9.0 Specific [place] Ur Auto RFX 1.003 Normal 1.002-1.035 Protein, [...] /LPF Normal 0-1 CBC With Differential 05/23/2020 [facility] [address] [place] [address] [phone] White Blood Count 7.8 10 Normal 4.0-10.0 [...] 36.0-66.0 Lymph % 25.3 % Normal 24.0-44.0 Pershing % 11.0 % High 0.0-5.0 Eos % 3.8 % High 0.0-3.0 Baso % 0.6 % Normal 0.0-1.0 Immature Granulocyte % 0.3 % Normal 0-3.0 Nucleated Red Blood Cell % 0.0 % Normal 0-0 Neutrophils # 4.6 10 Normal 1.5-8.5 Lymph # 2.0 10 Normal 1.5-5.0 Pershing # 0.9 10 High 0.0-0.8 Eos # 0.3 10 Normal 0.0-0.5 Baso # 0.1 10 Normal 0.0-0.2 Liver Profile 05/23/2020 [facility] nter [address] [place], [place] [id number] [phone] Ast/Sgot 17 U/L Normal 7-37 Alt/SGPT 24 U/L Normal 12-78 Alkaline Phosphatase 93 U/L Normal 45-117 Bilirubin,Total 0.3 mg/dL Normal 0.2-1.0 Bilirubin,Direct < 0.1 mg/dL Normal 0.0-0.2 Total Protein 6.7 GM/DL Normal 6.4-8.2 Albumin 3.9 GM/DL Normal 3.2-5.2 Albumin/Globulin Ratio 1.4 Normal 1.2-2.2 Basic Metabolic Profile 05/23/2020 [facility] [address] [place] [id number] [phone] Glucose, Fasting 116 mg/dL High 70-100 Blood Urea Nitrogen 18 mg/dL Normal 7-18 Creatinine For GFR 0.62 mg/dL Normal 0.55-1.30 Glomerular Filtration Rate > 60.0 Normal >39 4 Sodium Level 144 mEq/L Normal 136-145 Potassium Serum 4.0 mEq/L Normal 3.5-5.1 Chloride Level 112 mEq/L High 98-107 Carbon Dioxide Level 24 mEq/L Normal 21-32 Anion Gap 8 mEq/L Normal 8-16 Calcium Level 9.6 mg/dL Normal 8.8-10.2 Laboratory test finding 05/23/2020 [facility] [address] [place] [address] [phone] Lipase 129 U/L Normal 73-393 Reflex Urine Culture 05/23/2020 [facility] enter [address] [place] [address] [phone] Reflex Urine Culture FULL REPORT IN L <SEE NOTE> Norm al 5 A1c 04/05/2020 [facility] Solar Fabrication Technician: [place] [address] [phone] Hba1c 6.8 g/dL High 4.8 - 5.6 6 Est Avg Glucose 148 mg/dL High 60 - 110 Basic Metabolic Panel 04/05/2020 [facility] Solar Fabrication Technician: [place] [address] [phone] Glucose 95 mg/dL 74 - 99 7 BUN 23 mg/dL High 7 - 18 Creatinine 0.8 mg/dL 0.6 - 1.3 Sodium 145 mEq/L 136 - 145 Potassium 4.4 mEq/L 3.5 - 5.1 Chloride 106 mEq/L 98 - 107 Carbon Dioxide 31 mEq/L 21 - 32 Calcium 9.4 mg/dL 8.5 - 10.1 GFR >= 60 mL/min >60 GFR >= 60 mL/min >60 8 1 100-125 mg/dL PRE-DIABET ES/FASTING >126 mg/dL DIABETES/FASTING 2 CHRONIC KIDNEY DISEASE STAGI NG PER NKF STAGE I & II GFR >= 60 NORMAL TO MILDLY DECREASED STAGE III GFR 30-59 MODERATELY DECREASED STAGE IV GFR 15-29 SEVERELY DECREASED STAGE V GFR <15 VERY LITTLE GFR LEFT ESRD GFR <15 ON MOTION DESIGNER 3 FULL REPORT IN LAB NOTES (eC [...] NEGATIVE ICR test is considered CLIDAMYCIN SENSITIVE. 4 Units are mL/min/1.73 m2 Chronic Kidney Disease Staging per NKF: Stage I & II GFR >=60 Normal to Mildly Decreased Stage III GFR 30-59 Moderately Decreased Stage IV GFR 15-29 Severely Decreased Stage V GFR <15 Very Little GFR Left ESRD GFR <15 on MOTION DESIGNER 5 FULL REPORT IN LAB NOTES (eC W and Medent). NO GROWTH CLINICAL SIGNIFICANCE 1 ORGANISM 6 Lab Result Notes: Pre-Diabetes 5.7 - 6.4 % Diabetes = or > 6.5% 7 100-125 mg/dL PRE-DIABET ES/FASTING >126 mg/dL DIABETES/FASTING 8 CHRONIC KIDNEY DISEASE STAGI NG PER NKF STAGE I & II GFR >= 60 NORMAL TO MILDLY DECREASED STAGE III GFR 30-59 MODERATELY DECREASED STAGE IV GFR 15-29 SEVERELY DECREASED STAGE V GFR <15 VERY LITTLE GFR LEFT ESRD GFR <15 ON MOTION DESIGNER Procedures Date Code Description Status 07/23/2018 [id number] Diabetic Retinal Eye Exam Comple mallory 12/29/2017 [id number] Bone Mineral Density Test Comple mallory 12/29/2017 [id number] Mammogram Completed 08/20/2017 [id number] Diabetic Retinal Eye Exam Comple mallory 06/12/2017 [id number] Diabetic Retinal Eye Exam Comple mallory 05/29/2017 [id number] Diabetic Retinal Eye Exam Comple mallory 02/25/2017 [id number] Diabetic Retinal Eye Exam Comple mallory 02/20/2017 [id number] Diabetic Retinal Eye Exam Comple mallory 01/14/2016 [id number] Colonoscopy Completed 03/28/2015 [id number] Diabetic Retinal Eye Exam Comple mallory 02/20/2014 [id number] Diabetic Retinal Eye Exam Comple mallory 02/28/2013 [id number] Diabetic Retinal Eye Exam Comple mallory 10/27/2011 [id number] Diabetic Retinal Eye Exam Comple mallory 09/23/2010 [id number] Bone Mineral Density Test Comple mallory 09/23/2010 [id number] Mammogram Completed Medical Devices Description No Information Available Encounters Type Date Location Provider Dx Diagnosis Office Visit 06/22/2020 1[facility]p [facility] N76.0 Acute vaginitis J45.20 Mild intermittent asthma, un complicated I50.32 Chronic diastolic (congestiv e) heart failure E11.9 Type 2 diabetes mellitus wit hout complications Office Visit 06/07/2020 1:00p [facility] DO K57.92 Dvtrcli of intest, part unsp, w/o perf or abscess w/o bleed J45.20 Mild intermittent asthma, un complicated I50.32 Chronic diastolic (congestiv e) heart failure E11.9 Type 2 diabetes mellitus wit hout complications J30.9 Allergic rhinitis, unspecifi ed Office Visit 05/29/2020 3:30p [facility] DO R10.32 Left lower quadrant pain J45.20 Mild intermittent asthma, un complicated I50.32 Chronic diastolic (congestiv e) heart failure E11.9 Type 2 diabetes mellitus wit hout complications E78.5 Hyperlipidemia, unspecified Office Visit 04/05/2020 11:20a [facility] Karin Quintanilla ,DO Z00.00 Encntr for general adult medical exam w/o abnormal findings J45.20 Mild intermittent asthma, un complicated I50.32 Chronic diastolic (congestiv e) heart failure E11.9 Type 2 diabetes mellitus wit hout complications E78.5 Hyperlipidemia, unspecified J30.9 Allergic rhinitis, unspecifi ed Z13.89 Encounter for screening for other disorder Office Visit 04/05/2020 11:00a [facility] Nurse #2 J45.20 Mild intermittent asthma, uncomplicated I50.32 Chronic diastolic (congestiv e) heart failure E11.9 Type 2 diabetes mellitus wit hout complications E78.5 Hyperlipidemia, unspecified Assessments Date Code Description Provider 07/16/2020 K57.92 Diverticulitis of in testine, part unspecified, without perforation or abscess without bleeding Karin Quintanilla,DO 07/16/2020 I50.32 Chronic diastolic (congestive) h eart failure Karin Quintanilla,DO 07/16/2020 J45.20 Mild intermittent asthma, uncomp licated Karin Denny,DO 07/16/2020 I11.0 Hypertensive heart disease with heart failure Karin Quintanilla,DO 07/16/2020 K58.1 Irritable bowel syndrome with co nstipation Karin Quintanilla,DO 06/22/2020 N76.0 Acute vaginitis Karin Quintanilla,DO 06/22/2020 J45.20 Mild intermittent asthma, uncomp licated Karin Denny,DO 06/22/2020 I50.32 Chronic diastolic (congestive) h eart failure Karin Denny,DO 06/22/2020 E11.9 Type 2 diabetes mellitus without complications Karin Quintanilla,DO 06/07/2020 K57.92 Diverticulitis of in testine, part unspecified, without perforation or abscess without bleeding Karin Quintanilla,DO 06/07/2020 J45.20 Mild intermittent asthma, uncomp licated Karin Denny,DO 06/07/2020 I50.32 Chronic diastolic (congestive) h eart failure Karin Denny,DO 06/07/2020 E11.9 Type 2 diabetes mellitus without complications Karin Quintanilla,DO 06/07/2020 J30.9 Allergic rhinitis, unspecified L aura Denny,DO 05/29/2020 R10.32 Left lower quadrant pain Karin Christine wharton,DO 05/29/2020 J45.20 Mild intermittent asthma, uncomp licated Karin Quintanilla,DO 05/29/2020 I50.32 Chronic diastolic (congestive) h eart failure Karin Quintanilla,DO 05/29/2020 E11.9 Type 2 diabetes mellitus without complications Karin Quintanilla,DO 05/29/2020 E78.5 Hyperlipidemia, unspecified Gualberto a Denny,DO 04/05/2020 J45.20 Mild intermittent asthma, uncomp licated Karin Quintanilla,DO 04/05/2020 J45.20 Mild intermittent asthma, uncomp licated Nurse #2 04/05/2020 I50.32 Chronic diastolic (congestive) h eart failure Karin Quintanilla,DO 04/05/2020 I50.32 Chronic diastolic (congestive) h eart failure Nurse #2 04/05/2020 E11.9 Type 2 diabetes mellitus without complications Karin Quintanilla,DO 04/05/2020 E11.9 Type 2 diabetes mellitus without complications Nurse #2 04/05/2020 E78.5 Hyperlipidemia, unspecified Gualberto a Denny,DO 04/05/2020 E78.5 Hyperlipidemia, unspecified Nurs e #2 04/05/2020 Z00.00 Encounter for genera l adult medical examination without abnormal findings Karin Quintanilla,DO 04/05/2020 J45.20 Mild intermittent asthma, uncomp licated Karin Quintanilla,DO 04/05/2020 I50.32 Chronic diastolic (congestive) h eart failure Karin Quintanilla,DO 04/05/2020 E11.9 Type 2 diabetes mellitus without complications Karin Quintanilla,DO 04/05/2020 E78.5 Hyperlipidemia, unspecified Gualberto a Denny,DO 04/05/2020 J30.9 Allergic rhinitis, unspecified L aura Denny,DO 04/05/2020 Z13.89 Encounter for screening for othe r disorder Karin Quintanilla DO Plan of Treatment Future Appointment(s):* 10/09/2020 8:40 am - Karin Quintanilla DO at [facility] 07/16/2020 - Karin Quintanilla DO* [...] CHANGE IN BOWELS Patient Notified 09/06/2020 [address] [facility] [address] [phone]
--- OUTSIDE RECORDS SUMMARY | 2020-10-10 07:38 | CCD ---
Author Author [facility] Organization [facility] Address Unknown Phone Unavailable Care Team Providers [facility] Ass[facility] Senior Manager Name Role Phone Denny, Karin DO Unavailable Unavailable Denny, Karin DO Unavailable Unavailable Denny, Karin DO Unavailable Unavailable Denny, Karin DO Unavailable Unavailable Denny, Karin DO Unavailable Unavailable Denny, Karin DO Unavailable Unavailable Denny, Karin DO Unavailable Unavailable Denny, Karin DO Unavailable Unavailable Denny, Karin DO Unavailable Unavailable Denny, Karin DO Unavailable Unavailable Denny, Karin DO Unavailable Unavailable Denny, Karin DO Unavailable Unavailable Denny, Karin DO Unavailable Unavailable Denny, Karin DO Unavailable Unavailable Denny, Karin DO Unavailable Unavailable Denny, Karin DO Unavailable Unavailable Denny, Karin DO Unavailable Unavailable Denny, Karin DO Unavailable Unavailable Denny, Karin DO Unavailable Unavailable Denny, Karin DO Unavailable Unavailable Denny, Karin DO Unavailable Unavailable Denny, Karin DO Unavailable Unavailable Denny, Karin DO Unavailable Unavailable Denny, Karin DO Unavailable Unavailable Denny, Karin DO Unavailable Unavailable Denny, Karin DO Unavailable Unavailable Denny, Karin DO Unavailable Unavailable Denny, Karin DO Unavailable Unavailable Denny, Karin DO Unavailable Unavailable Denny, Karin DO Unavailable Unavailable Denny, Karin DO Unavailable Unavailable Denny, Karin DO Unavailable Unavailable Denny, Karin DO Unavailable Unavailable Denny, Karin DO Unavailable Unavailable Denny, Karin DO Unavailable Unavailable Denny, Karin DO Unavailable Unavailable Denny, Karin DO Unavailable Unavailable Denny, Karin DO Unavailable Unavailable Denny, Karin DO Unavailable Unavailable Denny, Karin DO Unavailable Unavailable Denny, Karin DO Unavailable Unavailable Denny, Karin DO Unavailable Unavailable Denny, Karin DO Unavailable Unavailable Denny, Karin DO Unavailable Unavailable Denny, Karin DO Unavailable Unavailable Denny, Karin DO Unavailable Unavailable Denny, Karin DO Unavailable Unavailable Denny, Karin DO Unavailable Unavailable Denny, Karin DO Unavailable Unavailable Denny, Karin DO Unavailable Unavailable Denny, Karin DO Unavailable Unavailable Ednny, Karin DO Unavailable Unavailable Denny, Karin DO Unavailable Unavailable Denny, Karin DO Unavailable Unavailable Denny, Karin DO Unavailable Unavailable Denny, Karin DO Unavailable Unavailable Denny, Karin DO Unavailable Unavailable Denny, Karin DO Unavailable Unavailable Denny, Karin DO Unavailable Unavailable Denny, Karin DO Unavailable Unavailable Denny, Karin DO Unavailable Unavailable Denny, Karin DO Unavailable Unavailable Denny, Karin DO Unavailable Unavailable Denny, Karin DO Unavailable Unavailable Denny, Karin DO Unavailable Unavailable Denny, Karin DO Unavailable Unavailable Denny, Karin DO Unavailable Unavailable Denny, Karin DO Unavailable Unavailable Denny, Karin DO Unavailable Unavailable Denny, Karin DO Unavailable Unavailable Denny, Karin DO Unavailable Unavailable Denny, Karin DO Unavailable Unavailable Gadiel Preciado MD Unavailable Unavailable Gadiel Preciado MD Unavailable Unavailable Gadiel Preciado MD Unavailable Unavailable Gadiel Preciado MD Unavailable Unavailable Gadiel Preciado MD Unavailable Unavailable Gadiel Preciado MD Unavailable Unavailable Gadiel Preciado MD Unavailable Unavailable Gadiel Preciado MD Unavailable Unavailable Gadiel Preciado MD Unavailable Unavailable OzzyGadiel MD Unavailable Unavailable Ozzy S Efren BERKOWITZ Unavailable Unavailable Ozzy S Efren BERKOWITZ Unavailable Unavailable Ozzy S Efren BERKOWITZ Unavailable Unavailable Ozzy S Efren BERKOWITZ Unavailable Unavailable Gadiel Preciado MD Unavailable Unavailable Gadiel Preciado MD Unavailable Unavailable OzzyGadiel MD Unavailable Unavailable OzzyGadiel MD Unavailable Unavailable OzzyGadiel MD Unavailable Unavailable Ozzy S Efren BERKOWITZ Unavailable Unavailable OzzyGadiel MD Unavailable Unavailable Gadiel Preciado MD Unavailable Unavailable Gadiel Preciado MD Unavailable Unavailable OzzyGadiel MD Unavailable Unavailable Ozzy S Efren BERKOWITZ Unavailable Unavailable Ozzy S Efren MD Unavailable Unavailable Gadiel Preciado MD Unavailable Unavailable Gadiel Preciado MD Unavailable Unavailable Gadiel Preciado MD Unavailable Unavailable Gadiel Preciado MD Unavailable Unavailable Gadiel Preciado MD Unavailable Unavailable Gadiel Preciado MD Unavailable Unavailable Gadiel Preciado MD Unavailable Unavailable Gadiel Preciado MD Unavailable Unavailable Gadiel Preciado MD Unavailable Unavailable Gadiel Preciado MD Unavailable Unavailable Gadiel Preciado MD Unavailable Unavailable Gadiel Preciado MD Unavailable Unavailable Gadiel Preciado MD Unavailable Unavailable Gadiel Preciado MD Unavailable Unavailable Gadiel Preciado MD Unavailable Unavailable Gadiel Preciado MD Unavailable Unavailable Gadiel Preciado MD Unavailable Unavailable Gadiel Preciado MD Unavailable Unavailable Gadiel Preciado MD Unavailable Unavailable Gadiel Preciado MD Unavailable Unavailable Gadiel Preciado MD Unavailable Unavailable Gadiel Preciado MD Unavailable Unavailable Gadiel Preciado MD Unavailable Unavailable Gadiel Preciado MD Unavailable Unavailable TURRIN, DEXTER Unavailable Unavailable TURRIN, DEXTER Unavailable Unavailable TURRIN, DEXTER Unavailable Unavailable TURRIN, DEXTER Unavailable Unavailable MARTINES, M SANDRA PA Unavailable Unavailable MARTINES, M SANDRA PA Unavailable Unavailable MARTINES, M SANDRA PA Unavailable Unavailable MARTINES, M SANDRA PA Unavailable Unavailable MARTINES, M SANDRA PA Unavailable Unavailable MARTINES, M SANDRA PA Unavailable Unavailable MARTINES, M SANDRA PA Unavailable Unavailable MARTINES, M SANDRA PA Unavailable Unavailable MARTINES, M SANDRA PA Unavailable Unavailable MARTINES, M SANDRA PA Unavailable Unavailable MARTINES, M SANDRA PA Unavailable Unavailable MARTINES, M SANDRA PA Unavailable Unavailable MARTINES, M SANDRA PA Unavailable Unavailable MARTINES, M SANDRA PA Unavailable Unavailable MARTINES, M SANDRA PA Unavailable Unavailable MARTINES, M SANDRA PA Unavailable Unavailable MARTINES, M SANDRA PA Unavailable Unavailable MARTINES, M SANDRA PA Unavailable Unavailable MARTINES, M SANDRA PA Unavailable Unavailable MARTINES, M SANDRA PA Unavailable Unavailable MARTINES, M SANDRA PA Unavailable Unavailable MARTINES, M SANDRA PA Unavailable Unavailable MARTINES, M SANDRA PA Unavailable Unavailable MARTINES, M SANDRA PA Unavailable Unavailable MARTINES, M SANDRA PA Unavailable Unavailable MARTINES, M SANDRA PA Unavailable Unavailable MARTINES, M SANDRA PA Unavailable Unavailable MARTINES, M SANDRA PA Unavailable Unavailable MARTINES, Imani FLORES PA Unavailable Unavailable MARTINES, Imani FLORES PA Unavailable Unavailable MARTINES, Imani FLORES PA Unavailable Unavailable MARTINES, Imani FLORES PA Unavailable Unavailable MARTINES, Imani FLORES PA Unavailable Unavailable Re-disclosure Warning The records that you are about to access may contain information from federally-assisted alcohol or drug abuse programs. If such information is present, then the following federally mandated warning applies: This information has been disclosed to you from records protected by federal confidentiality rules (42 CFR part 2). The federal rules prohibit you from making any further disclosure of this information unless further disclosure is expressly permitted by the written consent of the person to whom it pertains or as otherwise permitted by 42 CFR part 2. A general authorization for the release of medical or other information is NOT sufficient for this purpose. The Federal rules restrict any use of the information to criminally investigate or prosecute any alcohol or drug abuse patient.The records that you are about to access may contain highly sensitive health information, the redisclosure of which is protected by Article 27-F of the [facility] Public Health law. If you continue you may have access to information: Regarding HIV / AIDS; Provided by facilities licensed or operated by the [facility] Office of Mental Health; or Provided by the [facility] Office for People With Developmental Disabilities. If such information is present, then the following [facility] mandated warning applies: This information has been disclosed to you from confidential records which are protected by state law. State law prohibits you from making any further disclosure of this information without the specific written consent of the person to whom it pertains, or as otherwise permitted by law. Any unauthorized further disclosure in violation of state law may result in a fine or senior living sentence or both. A general authorization for the release of medical or other information is NOT sufficient authorization for further disc losure. Allergies and Adverse Reactions Type Description Substance Reaction Status Data Source(s ) Drug Allergy NKDA NKDA [facility] ([facility]) Family History Family Member Name Family Member Gender Family Member Status Date o f Status Description Data Source(s) Unknown Female Problem [facility] ([facility]) Unknown Female Problem [facility] ([facility]) Encounters Encounter Providers Location Date Indications Data Source(s ) Outpatient Attender: Efren Preciado MD Main Office 09/06/2020 08:15:00 AM EST [facility] ([facility]) Emergency Attender: DEXTER WILKINS 2019 03:56:00 PM EST - 07/09/2020 08:24:00 PM EST [facility] Patient discharged. Outpatient Attender: Karin Palomares 06/22 01:45:00 PM EDT [facility] ([facility] ) Outpatient Attender: Karin Palomares 06/07 01:00:00 PM EDT [facility] ([facility] ) Outpatient Attender: Karin Palomares 05/29 03:30:00 PM EDT [facility] ([facility] ) Outpatient Attender: Karin Palomares 04/05 11:20:00 AM EDT [facility] ([facility] ) Office Visit Yang Contreras 04/05/2020 11:00:00 AM EDT [facility] ([facility]) Outpatient Attender: SANDRA Guerrero/oCral/Clive/Rein dl 01/25/2020 02:30:00 PM EDT [facility] ([facility] Outpatient Attender: SANDRA Salvador/Clive/Rein dl 11/23/2019 10:30:00 AM EDT [facility] ([facility] Medications Medication Brand Name Start Date Product Form Dose Route Admi nistrative Instructions Pharmacy Instructions Status Indications Reaction Description Data Source(s) 100 mg 10/04/2020 12:00:00 AM EST tablet 30 TAKE ONE TABLET BY MOUTH EVERY DAY TAKE ONE TABLET BY MOUTH EVERY DAY SOLD: 10/05/2020 [facility] 1.479-0.188 gram 09/18/2020 12:00:00 AM EST tablet 24 USE DIRECTED USE DIRECTED SOLD: 09/18/2020 [facility] Sutab Sutab 09/06/2020 12:00:00 AM EST active [facility] ([facility]) montelukast 10 MG Oral Tablet MONTELUKAST SODIUM 08/23/2020 12:0 0:00 AM EST tablet 30 TAKE ONE TABLET BY MOUTH EVERY D AY AT BEDTIME TAKE ONE TABLET BY MOUTH EVERY DAY AT BEDTIME SOLD: 08/26/2020 [facility] montelukast 10 MG Oral Tablet MONTELUKAST SODIUM 08/23/2020 12:0 0:00 AM EST tablet 30 TAKE ONE TABLET BY MOUTH EVERY D AY AT BEDTIME TAKE ONE TABLET BY MOUTH EVERY DAY AT BEDTIME SOLD: 09/24/2020 [facility] POLYETHYLENE GLYCOL 3350 142 MG/ML Oral Solution [Miralax] M iralax 07/16/2020 12:00:00 AM EST active M [facility] ([facility]) 150 mg 07/10/2020 12:00:00 AM EST tablet 2 TAKE ONE TABLET BY MOUTH, & MAY REPEAT IN 3 DAYS TAKE ONE TABLET BY MOUTH, & MAY REPEAT IN 3 DAYS SOLD: 07/10/2020 [facility] 500 mg 06/26/2020 12:00:00 AM EST tablet 5 TAKE ONE TABLET BY MOUTH EVERY DAY FOR 5 DAYS TAKE ONE TABLET BY MOUTH EVERY DAY FOR 5 DAYS SOLD: 06/27/2020 [facility] Levofloxacin 500 MG Oral Tablet Levofloxacin 06/26/2020 12:00:[address] ORAL completed [facility] ([facility]) 5 mg 06/22/2020 12:00:00 AM EDT tablet 90 TAKE ONE TABLET BY MOUTH EVERY DAY TAKE ONE TABLET BY MOUTH EVERY DAY SOLD: 09/24/2020 [facility] 150 mg 06/22/2020 12:00:00 AM EDT tablet 2 TAKE 1 TABLET BY MOUTH DIRECTED MAY REPEAT IN 3 DAYS TAKE 1 TABLET BY MOUTH DIRECTED MAY R EPEAT IN 3 DAYS SOLD: 06/22/2020 [facility] Fluconazole 150 MG Oral Tablet [Diflucan] Diflucan 06/22/2020 1 2:00:00 AM EDT ORAL active [facility] ([facility]) 5 mg 06/22/2020 12:00:00 AM EDT tablet 90 TAKE ONE TABLET BY MOUTH EVERY DAY TAKE ONE TABLET BY MOUTH EVERY DAY SOLD: 06/22/2020 [facility] Amlodipine 5 MG Oral Tablet Amlodipine Besylate 06/22/2020 12:00:00 A M EDT ORAL active [facility] ([facility]) Miconazole Nitrate 40 MG/ML Vaginal Cream [Monistat] Monista t 3 06/18/2020 12:00:00 AM EDT active M [facility] ([facility]) 500 mg 06/07/2020 12:00:00 AM EDT tablet 2 TAKE ONE TABLET BY MOUTH EVERY DAY FOR 2 DAYS TAKE ONE TABLET BY MOUTH EVERY DAY FOR 2 DAYS SOLD: 06/08/2020 [facility] Metronidazole 500 MG Oral Tablet METRONIDAZOLE 06/07/2020 12:0 0:00 AM EDT tablet 6 TAKE ONE TABLET BY MOUTH THREE T IMES A DAY FOR 2 DAYS TAKE ONE TABLET BY MOUTH THREE TIMES A DAY FOR 2 DAYS SOLD: 06/07/2020 [facility] Metronidazole 500 MG Oral Tablet METRONIDAZOLE 05/29/2020 12:0 0:00 AM EDT tablet 27 TAKE ONE TABLET BY MOUTH THREE T IMES A DAY FOR 8 DAYS TAKE ONE TABLET BY MOUTH THREE TIMES A DAY FOR 8 DAYS SOLD: 05/29/2020 [facility] Levofloxacin 500 MG Oral Tablet Levofloxacin 05/29/2020 12:00:00 AM E DT ORAL completed [facility] ([facility]) Metronidazole 500 MG Oral Tablet Metronidazole 05/29/2020 12:00:00 AM EDT ORAL active [facility] ([facility]) 500 mg 05/29/2020 12:00:00 AM EDT tablet 8 TAKE ONE TABLET BY MOUTH DAILY FOR 8 DAYS TAKE ONE TABLET BY MOUTH DAILY FOR 8 DAYS SOLD: 05/29/2020 [facility] montelukast 10 MG Oral Tablet MONTELUKAST SODIUM 04/24/2020 12:0 0:00 AM EDT tablet 30 TAKE ONE TABLET BY MOUTH EVERY D AY AT BEDTIME TAKE ONE TABLET BY MOUTH EVERY DAY AT BEDTIME SOLD: 05/02/2020 [facility] montelukast 10 MG Oral Tablet MONTELUKAST SODIUM 04/24/2020 12:0 0:00 AM EDT tablet 30 TAKE ONE TABLET BY MOUTH EVERY D AY AT BEDTIME TAKE ONE TABLET BY MOUTH EVERY DAY AT BEDTIME SOLD: 06/07/2020 [facility] montelukast 10 MG Oral Tablet MONTELUKAST SODIUM 04/24/2020 12:0 0:00 AM EDT tablet 30 TAKE ONE TABLET BY MOUTH EVERY D AY AT BEDTIME TAKE ONE TABLET BY MOUTH EVERY DAY AT BEDTIME SOLD: 07/06/2020 [facility] 2.5 mcg/actuation 03/30/2020 12:00:00 AM EDT mist 4 INHALE TWO PUFFS BY MOUTH EVERY DAY INHALE TWO PUFFS BY MOUTH EVERY DAY SOLD: 04/01/2020 [facility] 40 mg 02/29/2020 12:00:00 AM EDT tablet 30 TAKE ONE TABLET BY MOUTH EVERY DAY TAKE ONE TABLET BY MOUTH EVERY DAY SOLD: 04/04/2020 [facility] Metformin hydrochloride 500 MG Oral Tablet METFORMIN HCL 02/29/2020 12:00:00 AM EDT tablet 90 TAKE 2 TABLETS B Y MOUTH EVERY MORNING AND 1 TABLET EVERY EVENING TAKE 2 TABLETS BY MOUTH EVERY MORNING AND 1 TABLET SHAMAR RY EVENING SOLD: 05/02/2020 [facility] Metformin hydrochloride 500 MG Oral Tablet METFORMIN HCL 02/29/2020 12:00:00 AM EDT tablet 90 TAKE 2 TABLETS B Y MOUTH EVERY MORNING AND 1 TABLET EVERY EVENING TAKE 2 TABLETS BY MOUTH EVERY MORNING AND 1 TABLET SHAMAR RY EVENING SOLD: 07/06/2020 [facility] atorvastatin 40 MG Oral Tablet ATORVASTATIN CALCIUM 02/29/2020 1 2:00:00 AM EDT tablet 30 TAKE ONE TABLET BY MOUTH EVERY D AY TAKE ONE TABLET BY MOUTH EVERY DAY SOLD: 10/05/2020 [facility] Metformin hydrochloride 500 MG Oral Tablet METFORMIN HCL 02/29/2020 12:00:00 AM EDT tablet 90 TAKE 2 TABLETS B Y MOUTH EVERY MORNING AND 1 TABLET EVERY EVENING TAKE 2 TABLETS BY MOUTH EVERY MORNING AND 1 TABLET SHAMAR RY EVENING SOLD: 10/05/2020 [facility] 500 mg 02/29/2020 12:00:00 AM EDT tablet 90 TAKE 2 TABLETS BY MOUTH EVERY MORNING AND 1 TABLET EVERY EVENING TAKE 2 TABLETS BY MOUTH EVERY MORNING AN D 1 TABLET EVERY EVENING SOLD: 08/06/2020 [facility] 40 mg 02/29/2020 12:00:00 AM EDT tablet 30 TAKE ONE TABLET BY MOUTH EVERY DAY TAKE ONE TABLET BY MOUTH EVERY DAY SOLD: 03/06/2020 [facility] Metformin hydrochloride 500 MG Oral Tablet METFORMIN HCL 02/29/2020 12:00:00 AM EDT tablet 90 TAKE 2 TABLETS B Y MOUTH EVERY MORNING AND 1 TABLET EVERY EVENING TAKE 2 TABLETS BY MOUTH EVERY MORNING AND 1 TABLET SHAMAR RY EVENING SOLD: 06/07/2020 [facility] Metformin hydrochloride 500 MG Oral Tablet METFORMIN HCL 02/29/2020 12:00:00 AM EDT tablet 90 TAKE 2 TABLETS B Y MOUTH EVERY MORNING AND 1 TABLET EVERY EVENING TAKE 2 TABLETS BY MOUTH EVERY MORNING AND 1 TABLET SHAMAR RY EVENING SOLD: 09/06/2020 [facility] atorvastatin 40 MG Oral Tablet ATORVASTATIN CALCIUM 02/29/2020 1 2:00:00 AM EDT tablet 30 TAKE ONE TABLET BY MOUTH EVERY D AY TAKE ONE TABLET BY MOUTH EVERY DAY SOLD: 06/07/2020 [facility] atorvastatin 40 MG Oral Tablet ATORVASTATIN CALCIUM 02/29/2020 1 2:00:00 AM EDT tablet 30 TAKE ONE TABLET BY MOUTH EVERY D AY TAKE ONE TABLET BY MOUTH EVERY DAY SOLD: 09/06/2020 [facility] 500 mg 02/29/2020 12:00:00 AM EDT tablet 90 TAKE 2 TABLETS BY MOUTH EVERY MORNING AND 1 TABLET EVERY EVENING TAKE 2 TABLETS BY MOUTH EVERY MORNING AN D 1 TABLET EVERY EVENING SOLD: 04/04/2020 [facility] atorvastatin 40 MG Oral Tablet ATORVASTATIN CALCIUM 02/29/2020 1 2:00:00 AM EDT tablet 30 TAKE ONE TABLET BY MOUTH EVERY D AY TAKE ONE TABLET BY MOUTH EVERY DAY SOLD: 08/06/2020 [facility] atorvastatin 40 MG Oral Tablet ATORVASTATIN CALCIUM 02/29/2020 1 2:00:00 AM EDT tablet 30 TAKE ONE TABLET BY MOUTH EVERY D AY TAKE ONE TABLET BY MOUTH EVERY DAY SOLD: 05/02/2020 [facility] 500 mg 02/29/2020 12:00:00 AM EDT tablet 90 TAKE 2 TABLETS BY MOUTH EVERY MORNING AND 1 TABLET EVERY EVENING TAKE 2 TABLETS BY MOUTH EVERY MORNING AN D 1 TABLET EVERY EVENING SOLD: 03/06/2020 [facility] atorvastatin 40 MG Oral Tablet ATORVASTATIN CALCIUM 02/29/2020 1 2:00:00 AM EDT tablet 30 TAKE ONE TABLET BY MOUTH EVERY D AY TAKE ONE TABLET BY MOUTH EVERY DAY SOLD: 07/06/2020 [facility] 500-50 mcg/dose 02/06/2020 12:00:00 AM EDT blister with edu ce 60 INHALE ONE PUFF BY MOUTH TWICE A DAY INHALE ONE PUFF BY MOUTH TWICE A DAY SOLD: 06/07/2020 [facility] 500-50 mcg/dose 02/06/2020 12:00:00 AM EDT blister with edu ce 60 INHALE ONE PUFF BY MOUTH TWICE A DAY INHALE ONE PUFF BY MOUTH TWICE A DAY SOLD: 02/13/2020 [facility] 500-50 mcg/dose 02/06/2020 12:00:00 AM EDT blister with edu ce 60 INHALE ONE PUFF BY MOUTH TWICE A DAY INHALE ONE PUFF BY MOUTH TWICE A DAY SOLD: 03/27/2020 [facility] 500-50 mcg/dose 02/06/2020 12:00:00 AM EDT blister with edu ce 60 INHALE ONE PUFF BY MOUTH TWICE A DAY INHALE ONE PUFF BY MOUTH TWICE A DAY SOLD: 09/06/2020 [facility] 500-50 mcg/dose 02/06/2020 12:00:00 AM EDT blister with edu ce 60 INHALE ONE PUFF BY MOUTH TWICE A DAY INHALE ONE PUFF BY MOUTH TWICE A DAY SOLD: 05/02/2020 [facility] 500-50 mcg/dose 02/06/2020 12:00:00 AM EDT blister with edu ce 60 INHALE ONE PUFF BY MOUTH TWICE A DAY INHALE ONE PUFF BY MOUTH TWICE A DAY SOLD: 08/06/2020 [facility] 500-50 mcg/dose 02/06/2020 12:00:00 AM EDT blister with eud ce 60 INHALE ONE PUFF BY MOUTH TWICE A DAY INHALE ONE PUFF BY MOUTH TWICE A DAY SOLD: 07/06/2020 [facility] 500-50 mcg/dose 02/06/2020 12:00:00 AM EDT blister with edu ce 60 INHALE ONE PUFF BY MOUTH TWICE A DAY INHALE ONE PUFF BY MOUTH TWICE A DAY SOLD: 10/05/2020 [facility] montelukast 10 MG Oral Tablet MONTELUKAST SODIUM 01/26/2020 12:0 0:00 AM EDT tablet 30 TAKE ONE TABLET BY MOUTH EVERY D AY AT BEDTIME TAKE ONE TABLET BY MOUTH EVERY DAY AT BEDTIME SOLD: 03/27/2020 [facility] montelukast 10 MG Oral Tablet MONTELUKAST SODIUM 01/26/2020 12:0 0:00 AM EDT tablet 30 TAKE ONE TABLET BY MOUTH EVERY D AY AT BEDTIME TAKE ONE TABLET BY MOUTH EVERY DAY AT BEDTIME SOLD: 02/01/2020 [facility] montelukast 10 MG Oral Tablet MONTELUKAST SODIUM 01/26/2020 12:0 0:00 AM EDT tablet 30 TAKE ONE TABLET BY MOUTH EVERY D AY AT BEDTIME TAKE ONE TABLET BY MOUTH EVERY DAY AT BEDTIME SOLD: 02/28/2020 [facility] montelukast 10 MG Oral Tablet Montelukast Sodium 01/25/2020 12:00:00 AM EDT ORAL active [facility] ([facility] ) 90 mcg/actuation 11/23/2019 12:00:00 AM EDT HFA aerosol inha ler 18 INHALE TWO PUFFS BY MOUTH FOUR TIMES A DAY NEEDED INHALE TWO PUFFS BY MOUTH FOUR TIMES A DAY NEEDED SOLD: 01/04/2020 [facility] 90 mcg/actuation 11/23/2019 12:00:00 AM EDT HFA aerosol inha ler 18 INHALE TWO PUFFS BY MOUTH FOUR TIMES A DAY NEEDED INHALE TWO PUFFS BY MOUTH FOUR TIMES A DAY NEEDED SOLD: 11/30/2019 [facility] 90 mcg/actuation 11/23/2019 12:00:00 AM EDT HFA aerosol inha ler 18 INHALE TWO PUFFS BY MOUTH FOUR TIMES A DAY NEEDED INHALE TWO PUFFS BY MOUTH FOUR TIMES A DAY NEEDED SOLD: 02/01/2020 [facility] 200 ACTUAT Albuterol 0.09 MG/ACTUAT Metered Dose Inhal er [Ventolin] Ventolin HFA 11/23/2019 12:00:00 AM EDT RESPIRATORY active [facility] ([facility] ) 100 mg 11/07/2019 12:00:00 AM EDT tablet 30 TAKE ONE TABLET BY MOUTH EVERY DAY TAKE ONE TABLET BY MOUTH EVERY DAY SOLD: 09/06/2020 [facility] 100 mg 11/07/2019 12:00:00 AM EDT tablet 30 TAKE ONE TABLET BY MOUTH EVERY DAY TAKE ONE TABLET BY MOUTH EVERY DAY SOLD: 2020 [facility] 100 mg 11/07/2019 12:00:00 AM EDT tablet 30 TAKE ONE TABLET BY MOUTH EVERY DAY TAKE ONE TABLET BY MOUTH EVERY DAY SOLD: 06/07/2020 [facility] 100 mg 11/07/2019 12:00:00 AM EDT tablet 30 TAKE ONE TABLET BY MOUTH EVERY DAY TAKE ONE TABLET BY MOUTH EVERY DAY SOLD: 07/06/2020 [facility] 100 mg 11/07/2019 12:00:00 AM EDT tablet 30 TAKE ONE TABLET BY MOUTH EVERY DAY TAKE ONE TABLET BY MOUTH EVERY DAY SOLD: 01/18/2020 [facility] 100 mg 11/07/2019 12:00:00 AM EDT tablet 30 TAKE ONE TABLET BY MOUTH EVERY DAY TAKE ONE TABLET BY MOUTH EVERY DAY SOLD: 08/06/2020 [facility] 100 mg 11/07/2019 12:00:00 AM EDT tablet 30 TAKE ONE TABLET BY MOUTH EVERY DAY TAKE ONE TABLET BY MOUTH EVERY DAY SOLD: 12/14/2019 [facility] 100 mg 11/07/2019 12:00:00 AM EDT tablet 30 TAKE ONE TABLET BY MOUTH EVERY DAY TAKE ONE TABLET BY MOUTH EVERY DAY SOLD: 03/27/2020 [facility] 100 mg 11/07/2019 12:00:00 AM EDT tablet 30 TAKE ONE TABLET BY MOUTH EVERY DAY TAKE ONE TABLET BY MOUTH EVERY DAY SOLD: 11/10/2019 [facility] 100 mg 11/07/2019 12:00:00 AM EDT tablet 30 TAKE ONE TABLET BY MOUTH EVERY DAY TAKE ONE TABLET BY MOUTH EVERY DAY SOLD: 05/02/2020 [facility] 40 mg 05/31/2019 12:00:00 AM EDT tablet 30 TAKE ONE TABLET BY MOUTH EVERY DAY TAKE ONE TABLET BY MOUTH EVERY DAY SOLD: 10/05/2019 [facility] 40 mg 05/31/2019 12:00:00 AM EDT tablet 30 TAKE ONE TABLET BY MOUTH EVERY DAY TAKE ONE TABLET BY MOUTH EVERY DAY SOLD: 11/05/2019 [facility] 40 mg 05/31/2019 12:00:00 AM EDT tablet 30 TAKE ONE TABLET BY MOUTH EVERY DAY TAKE ONE TABLET BY MOUTH EVERY DAY SOLD: 08/31/2019 [facility] 40 mg 05/31/2019 12:00:00 AM EDT tablet 30 TAKE ONE TABLET BY MOUTH EVERY DAY TAKE ONE TABLET BY MOUTH EVERY DAY SOLD: 01/04/2020 [facility] 40 mg 05/31/2019 12:00:00 AM EDT tablet 30 TAKE ONE TABLET BY MOUTH EVERY DAY TAKE ONE TABLET BY MOUTH EVERY DAY SOLD: 12/03/2019 [facility] 40 mg 05/31/2019 12:00:00 AM EDT tablet 30 TAKE ONE TABLET BY MOUTH EVERY DAY TAKE ONE TABLET BY MOUTH EVERY DAY SOLD: 02/01/2020 [facility] 500 mg 05/03/2019 12:00:00 AM EDT tablet 90 TAKE 2 TABLETS BY MOUTH EVERY MORNING AND 1 TABLET EVERY EVENING TAKE 2 TABLETS BY MOUTH EVERY MORNING AN D 1 TABLET EVERY EVENING SOLD: 08/31/2019 [facility] 500 mg 05/03/2019 12:00:00 AM EDT tablet 90 TAKE 2 TABLETS BY MOUTH EVERY MORNING AND 1 TABLET EVERY EVENING TAKE 2 TABLETS BY MOUTH EVERY MORNING AN D 1 TABLET EVERY EVENING SOLD: 10/05/2019 [facility] 500 mg 05/03/2019 12:00:00 AM EDT tablet 90 TAKE 2 TABLETS BY MOUTH EVERY MORNING AND 1 TABLET EVERY EVENING TAKE 2 TABLETS BY MOUTH EVERY MORNING AN D 1 TABLET EVERY EVENING SOLD: 11/05/2019 [facility] 500 mg 05/03/2019 12:00:00 AM EDT tablet 90 TAKE 2 TABLETS BY MOUTH EVERY MORNING AND 1 TABLET EVERY EVENING TAKE 2 TABLETS BY MOUTH EVERY MORNING AN D 1 TABLET EVERY EVENING SOLD: 12/03/2019 [facility] 500 mg 05/03/2019 12:00:00 AM EDT tablet 90 TAKE 2 TABLETS BY MOUTH EVERY MORNING AND 1 TABLET EVERY EVENING TAKE 2 TABLETS BY MOUTH EVERY MORNING AN D 1 TABLET EVERY EVENING SOLD: 01/04/2020 [facility] 500 mg 05/03/2019 12:00:00 AM EDT tablet 90 TAKE 2 TABLETS BY MOUTH EVERY MORNING AND 1 TABLET EVERY EVENING TAKE 2 TABLETS BY MOUTH EVERY MORNING AN D 1 TABLET EVERY EVENING SOLD: 02/01/2020 [facility] 500-50 mcg/dose 02/02/2019 12:00:00 AM EDT blister with edu ce 60 INHALE ONE PUFF BY MOUTH TWICE A DAY INHALE ONE PUFF BY MOUTH TWICE A DAY SOLD: 12/03/2019 [facility] 500-50 mcg/dose 02/02/2019 12:00:00 AM EDT blister with edu ce 60 INHALE ONE PUFF BY MOUTH TWICE A DAY INHALE ONE PUFF BY MOUTH TWICE A DAY SOLD: 10/05/2019 [facility] 500-50 mcg/dose 02/02/2019 12:00:00 AM EDT blister with edu ce 60 INHALE ONE PUFF BY MOUTH TWICE A DAY INHALE ONE PUFF BY MOUTH TWICE A DAY SOLD: 11/05/2019 [facility] 500-50 mcg/dose 02/02/2019 12:00:00 AM EDT blister with edu ce 60 INHALE ONE PUFF BY MOUTH TWICE A DAY INHALE ONE PUFF BY MOUTH TWICE A DAY SOLD: 01/04/2020 [facility] Losartan Potassium 100 MG Oral Tablet LOSARTAN [facility]OTAS[facility]UM 12:00:00 AM EDT tablet 30 TAKE ONE TABLET BY MOUTH SHAMAR RY DAY TAKE ONE TABLET BY MOUTH EVERY DAY SOLD: 10/05/2019 [facility] 100 mg 12/27/2018 12:00:00 AM EDT tablet 30 TAKE ONE TABLET BY MOUTH EVERY DAY TAKE ONE TABLET BY MOUTH EVERY DAY SOLD: 08/31/2019 [facility] Insurance Providers Payer name Policy type / Coverage type Policy ID Covered democrat ID Covered democrat's relationship to shepard Policy Shepard Plan Information AETNA MEDICARE [id number] SP [id number] MEDICARE BLUE PPO 306 [id number] SP [id number] AETNA MEDICARE [id number] SP 10 [id number] MEDICARE BLUE PPO 306 [id number] SP [id number] [facility] MCR -OP [id number] EXCELLUS BCBS B [id number] S VYM [id number] EXCELLUS BCBS B [id number] S VYM [id number] MEDICARE COMPLETE-[facility] O [id number] S [id number] Medicare Natl Govt Servic Medicare Primary [id number] Self [id number] Commercial [id number] Self [id number] Medicare Blue Ppo Commercial [id number] Self [id number] Medicare Natl Govt Servic Medicare Primary [id number] Self [id number] Commercial [id number] 00 Self [id number] 00 Medicare Natl Govt Servic Medicare Primary [id number] Self [id number] MEDICARE COMPLETE [id number] SP [id number] Medicare Natl Govt Servic Medicare Primary [id number] Self [id number] [facility] Commercial [id number] 00 Self [id number] 00 Medicare Natl Govt Servic Medicare Primary [id number] Self [id number] Medicare Natl Govt Servic Medicare Primary Self Unitedare Medicare Rachel Commercial [id number] Self [id number] [facility] O [id number] S [id number] MEDICARE COMPLETE [id number] SP [id number] MEDICARE [id number] SP [id number] [facility] Commercial Self Problems, Conditions, and Diagnoses Code Display Name Description Problem Type Effective Dates Data Source(s) 667146583 Mild intermittent asthma Mild intermittent asthma Prob melquiades 01/25/2020 12:00:00 AM EDT [facility] (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 group home (current) use of oral hypoglycemic drugs Diagnosis 07/09/2020 03:56:00 PM [facility] N3001 Acute cystitis with hematuria Acute cystitis with delmi turia Diagnosis 07/09/2020 03:56:00 PM [facility] K5710 Diverticulosis of small inte mala without perforation or abscess without bleeding Diverticulosis of small intestine withou t perforation or abscess without bleeding Diagnosis 07/09/2020 03:56:00 PM [facility] R1033 Periumbilical pain Periumbilical pain Diagnosis 03:56:00 PM [facility] Results ID Date Data Source [id number] 10/05/2020 09:40:00 AM EST [facility] Name Value Range Interpretation Code Description Data Elaine rce(s) Supporting Document(s) SARS coronavirus 2 RNA Not Detected [facility] This lab was ordered by [facility] and reported by [facility]. ID Date Data Source [id number] 09/07/2020 10:00:00 AM EST [facility] Name Value Range Interpretation Code Description Data Elaine rce(s) Supporting Document(s) SARS coronavirus 2 RNA Detected [facility] This lab was ordered by [facility] and reported by [facility]. ID Date Data Source [id number] 07/16/2020 10:00:00 AM EST [facility] ([facility]) Name Value Range Interpretation Code Description Data Elaine rce(s) Supporting Document(s) Glucose [Mass/volume] in Serum or Plasma 147 mg/dL 74-99 [facility] ([facility]) 100-125 mg/dL PRE-DIABETES/FASTING >126 mg/dL DIABETES/FASTING Urea nitrogen [Mass/volume] in Serum or Plasma 14 mg/dL 7-18 [facility] ([facility]) Creatinine 0.8 mg/dL 0.6-1.3 [facility]) Sodium [Moles/volume] in Serum or Plasma 143 meq/L 136-145 [facility] ([facility]) Carbon dioxide, total [Moles/volume] in Serum or Plasma 32 meq/L 21 -32 [facility] ([facility]) Potassium [Moles/volume] in Serum or Plasma 4.2 meq/L 3.5-5.1 [facility] ([facility]) Chloride [Moles/volume] in Serum or Plasma 104 meq/L 98-107 [facility] ([facility]) Calcium [Mass/volume] in Serum or Plasma 9.9 mg/dL 8.5-10.1 [facility] Glomerular filtration rate/1.73 sq M pre dicted among non-blacks [Volume Rate/Area] in Serum or Plasma by Creatinine-based formula (MDRD) Laboratory test result [facility] Glomerular filtration rate/1.73 sq M pre dicted among blacks [Volume Rate/Area] in Serum or Plasma by Creatinine-based formula (MDRD) Laboratory test result [facility] ([facility] <content>CHRONIC KIDNEY DISEASE STAGING PER NKF</content>
<content></content>
<content>STAGE I & II GFR >= 60 NORMAL TO MILDLY DECREASED</content>
<content>STAGE III GFR 30-59 MODERATELY DECREASED</content>
<content>STAGE IV GFR 15-29 SEVERELY DECREASED</content>
<content>STAGE V GFR <15 VERY LITTLE GFR LEFT</content>
<content>ESRD GFR <15 ON SALES SERVICE ROUTE MANAGER</content>
<content></content> ID Date Data Source [id number] 07/10/2020 03:47:00 PM [facility] [address] [place] [address] PHONE: [phone] FAX: [phone] Name .................. : BELINDA SOSA Acct Number.................. : [id number] ROOM. ................. : TR-07 Number ................... : [id number] Stay type ............. : E/R Discharge Date......... ... : 07/09/20 Admit Date .... ..... : 07/09/20 Admit Phys .................... : FRANKY PHOENIX Date of ....... : 1945 Family Phys ................... : Phone .................. : [phone] Age ................................ : 75 Film# .................. .:[id number] Sex ................................. : F Unsigned transcriptions are preliminary reports and do not represent a medical or legal document CT ABD & PELVIS W/ IV ONLY [id number] COMPLETE:07/09/20 18:11 GALE [id number] Reason(s): Abdominal Pain CT OF THE ABDOMEN AND PELVIS WITH CONTRAST: FINDINGS: The visualized lower lungs are clear. No enhancing liver lesions. Minimal intrahepatic ductal dilatation. The gallbladder has been removed. The pancreas and spleen are within normal limits. The bilateral adrenal glands are unremarkable. There are bilateral parapelvic renal cysts, the largest on the right measuring 3.2 cm. The largest on the left measuring 2.0 cm. No renal stones or hydronephrosis. The ureters are unremarkable. No aneurysmal dilatation of the aorta. No retroperitoneal adenopathy. Multiple diverticula along the distal colon. No surrounding inflammation. No bowel obstruction. The appendix is not visualized. The urinary bladder is unremarkable. The uterus is not visualized. No adnexal mass. No free air or free fluid. Mild degenerative changes lumbar spine. IMPRESSION: Diverticulosis. No obstruction. Appendix not visualized. No free air or free fluid. Bilateral parapelvic renal cysts. No renal stones or evidence of hydronephrosis. Page 1 of 2 [facility] [address] [place] [address] PHONE: [phone] FAX: [phone] Name .................. : BELINDA SOSA Acct Number.................. : [id number] ROOM. ................. : TR-07 MR Number ................... : [id number] Stay type ............. : E/R Discharge Date......... ... : 07/09/20 Admit Date ......... : 07/09/20 Admit Phys .................... : FRANKY PHOENIX Date of ....... : 1945 Family Phys ................... : Phone .................. : [phone] Age ................................ : 75 Film# .................. .:[id number] Sex ................................. : F Unsigned transcriptions are preliminary reports and do not represent a medical or legal document CT ABD & PELVIS W/ IV ONLY [id number] COMPLETE:07/09/20 18:11 GALE [id number] Reason(s): Abdominal Pain While performing the above CT examination, radiation dose reduction was accomplished utilizing automated exposure control, adjusting of the mA and kV based on the patient's body size and/or the use of imperative reconstructive techniques. CT dose: 978.6 mGycm Contrast agent in mL: 75 Isovue 370 Method of administration: Intravenous Electronically Reviewed and Signed By Leonard Grayson MD , 07/10/20 15:47, LESLIE Transcribe Initials: DONALDO , Transcribe Date: 07/09/20 21:33, Dictation Date: Copy for: AALIYAH PAULINO via fax Copy for: EMERGENCY DEPT via modem Copy for: 710 MED REC DISCHARGED Page 2 of 2 Name Value Range Interpretation Code Description Data Elaine rce(s) Supporting Document(s) ID Date Data Source [id number] 07/09/2020 03:56:00 PM EST [facility] 1 OrderSheet [facility] Emergency Department [address] [place] [address] Phone #: ext- [phone] 07/09/2020 15:48 Patient: IAN TREVINO Sex: F : 1945 Age: 75yWEIGHT:80.7 kg (S) HEIGHT:61 inches (S) BMI:33.6ALLERGIES: levoFLOXacinCHIEF COMPLAINT: abdominal painDIAGNOSIS: Urinary tract infectious disease, Diverticular diseaseLAB ORDERSOrder Description Priority Entered Acknowledged InitialedCBC w Diff STAT 16:20 07/09/2020 16:24 [facility]; [id number] STAT 16:20 07/09/2020 16:24 [facility] Andrew Allison; Resx3Jkad se STAT 16:20 07/09/2020 16:24 [facility] Andrew Allison; Cknp7Jyeyqigqiv (Clean STAT 16:20 07/09/2020 16:27 [facility] Allison; [id number] Acid STAT 16:20 07/09/2020 16:24 [facility]ien Wilfredo Duke [facility] formerAndrew Allison; [id number] STUDY ORDERSOrder Description Priority Entered Acknowledged InitialedCT Abd PEL W/ IV STAT 16:21 07/09/2020 17:23 Timoteo Marinelli Only Wilfredo Miranda R.N.(Oxygen?(No)) MINOR;(IV?(Yes)) Reason for Study: Abdominal PainMEDICATION/IV/DRIP/FLUID ORDERSOrder Description Priority Entered Acknowledged InitialedNS IV : Bolus 1000 16:20 07/09/2020 16:35 Yves,Kofi, then 150 mL/hr Wilfredo GAXIOLA;Zofran ODT PO 8 16:20 07/09/2020 Initialed: 16:35 Ruben Marinelli R.N.mg Wilfredo Duke Refused: 16:35 Zofran ODT PO 8 mg was 2 OrderSheet [facility] Emergency Department [address] [place] [address] Phone #: ext- [phone] 07/09/2020 15:48 Patient: IAN TREVINO Sex: F : 1945 Age: 75y PA; refused by patient.Morphine IVP 2 mg 16:20 07/09/2020 Initialed: 16:36 Ruben Marinelli R.N.(HIGH ALERT Wilfredo Duke Refused: 16:36 Morphine IVP 2 mg (HIGHMEDICATION) PA; ALERT MEDICATION) was refused by patient.GENERAL ORDERSOrder Description Priority Entered Acknowledged InitialedNPO 16:20 07/09/2020 16:21 Wilfredo Marinelli R.N.;Saline Lock 16:20 07/09/2020 16:21 Wilfredo Marinelli R.N.;[Electronically signed by Ruben Marinelli R.N. (20:24 07/09/2020)][Electronically signed by Wilfredo Duke (21:18 07/09/2020)][Electronically locked by Ruben Marinelli R.N. (20:24 07/09/2020)] Name Value Range Interpretation Code Description Data Elaine rce(s) Supporting Document(s) ID Date Data Source [id number] 07/09/2020 03:56:00 PM EST [facility] 1 Medication Reconciliation Report [facility] Emergency Department [address] [place] [address] Phone #: ext- [phone] 07/09/2020 15:48 Patient: IAN TREVINO Sex: F : 1945 Age: 75yWeight: 80.7 kgHeight/Length: 61 in.BMI: 33.6ALLERGIES: levoFLOXacinThe patient's Home Medications are listed below:CONTINUE TAKING THE FOLLOWING MEDICATIONS: Albuterol Sulfate HFA Inhalation (108 (90 Base) mcg/act), prn amLODIPine Besylate Oral (5 mg), daily Atorvastatin Calcium Oral (40 mg), daily Biotin Oral (07328 mcg), daily Centrum Silver Oral, daily Fluticasone-Salmeterol Inhalation (500-50 mcg/dose), daily Glucosamine HCl Oral (1500 mg), 2x a day Krill Oil [place]-3 Oral (500 mg), daily Losartan Potassium Oral (100 mg), daily Losartan Potassium Oral Magnesium Oral (400 mg) 1 capsule, 2x a day metFORMIN HCl Oral (500 mg), daily, at bedtime metFORMIN HCl Oral 500 mg, daily Montelukast Sodium Oral (10 mg), daily, at bedtime vitamin C with zinc 2 Medication Reconciliation Report [facility] Emergency Department [address] [place] [address] Phone #: ext- [phone] 07/09/2020 15:48 Patient: IAN TREVINO Sex: F : 1945 Age: 75y Vitamin E Oral (400 unit), dailyThe source(s) of the original Home Medication information:Not obtained.The following Medications were given to the patient in the Emergency Department:NS [IV] IV Fluids bolus 0, then 1000 mL/hr, administered: 07/09/2020 4:35:00 PMThe following Medications were prescribed to the patient:cefdinir 300 mg capsule Take 1 capsule twice a day for 7 days -- Dispense 14 capsule. Refills: 0.Substitution permitted.Pharmacy - [facility] - [address] [facility] ; [place] [address]. . -- [facility]OR [place] Name Value Range Interpretation Code Description Data Elaine rce(s) Supporting Document(s) ID Date Data Source [id number] 07/09/2020 03:56:00 PM EST [facility] 1 Medication Administration Record [facility] Emergency Department [address] [place] [address] Phone #: ext- [phone] 07/09/2020 15:48 Patient: IAN TREVINO Sex: F : 1945 Age: 75yWeight: 80.7 kgHeight/Length: 61 inBMI: 33.6ALLERGIES: levoFLOXacin Date/Time Medication Administered Medication OrderedStart NS [IV] NS IV : Bolus 1000 mL, then 48802:35 07/09/2020 Dose: IV Fluids mL/hrRuben Marinelli RLaceyNLacey Rate: 1000 mL/hr over 60 hour(s)---- Dispensed: 1000 mL bagStop Site: #1 right [id number] 07/09/2020Ruben Marinelli R.N. Name Value Range Interpretation Code Description Data Elaine rce(s) Supporting Document(s) ID Date Data Source [id number] 07/09/2020 03:56:00 PM EST [facility] 1 General Instructions [facility] Emergency Department [address] [place] [address] Phone #: ext- [phone] 07/09/2020 15:48 Patient: IAN TREVINO Sex: F : 1945 Age: 75yAcute diverticulosis of the small bowel. No perforation, bleeding or abscess.Acute urinary tract infection with cystitis and hematuria.INSTRUCTIONSYour Current Medications: Your current home medications have been reviewed.CONTINUE TAKING THE FOLLOWING MEDICATIONS:Albuterol Sulfate H FA Inhalation : Aerosol Solution 108 (90 Base) mcg/act, prn.amLODIPine Besylate Oral : Tablet 5 mg, daily.Atorvastatin Calcium Oral : Tablet 40 mg, daily.Biotin Oral : Tablet 81261 mcg, daily.Centrum Silver Oral : daily.Fluticasone- Salmeterol Inhalation : Aerosol Powder Breath Activated 500-50 mcg/dose, daily.Glucosamine HCl Oral : Tablet 1500 mg, 2x a day.Krill Oil [place]-3 Oral : Capsule 500 mg, daily.Losartan Potassium Oral : Tablet 100 mg, daily.Losartan Potassium Oral.Magnesium Oral : Capsule 400 mg, 1 capsule 2x a day.metFORMIN HCl Oral : Tablet 500 mg, daily, at bedtime.metFORMIN HCl Oral : 500 mg daily.Montelukast Sodium Oral : Tablet 10 mg, daily, at bedtime.vitamin C with zinc*.Vitamin E Oral : Capsule 400 unit, daily.Prescription Medications:cefdinir 300 mg capsule Take 1 capsule twice a day for 7 days -- Dispense 14 capsule. Refills: 0.Substitution permitted.Pharmacy - [facility] - [address] [facility] ; [place] [address]. .Fol low-up:Follow up with your doctor tomorrow. Call for the next available appointment. Reason for referral:evaluation, treatment and Refer to GI specialist for further evaluation if symptoms persist.. Summary ofcare provided to patient.Understanding of the discharge instructions verbalized by patient. 2 General Instructions [facility] Emergency Department [address] [place], [place] [address] Phone #: ext- [phone] 07/09/2020 15:48 Patient: IAN TREVINO Sex: F : 1945 Age: 75y ADDITIONAL INFORMATIONBladder Infection, Female (Adult)Urine is normally doesn't have any bacteria in it. But bacteria can get into the urinary tract from theskin around the rectum. Or they can travel in the blood from elsewhere in the body. Once they are inyour urinary tract, they can cause infection in the urethra (urethritis), the bladder (cystitis), or thekidneys (pyelonephritis).The most common place for an infection is in the bladder. This is called a bladder infection. This isone of the most common infections in women. Most bladder infections are easily treated. They arenot serious unless the infection spreads to the kidney.The phrases "bladder infection," "UTI," and "cystitis" are often used to describe the same thing. Butthey are not always the same. Cystitis is an inflammation of the bladder. The most common cause ofcystitis is an infection.SymptomsThe infection causes inflammation in the urethra and bladder. This causes many of the symptoms.The most common symptoms of a bladder infection are: Pain or burning when urinating Having to urinate more often than usual Urgent need to urinate 3 General Instructions [facility] Emergency Department [address] [place] [address] Phone #: ext- [phone] 07/09/2020 15:48 Patient: IAN TREVINO Sex: F : 1945 Age: 75y Only a small amount of urine comes out Blood in urine Abdominal discomfort. This is usually in the lower abdomen above the pubic bone. Cloudy urine Strong- or bad-smelling urine Unable to urinate (urinary retention) Unable to hold urine in (urinary incontinence) Fever Loss of appetite Confusion (in older adults)CausesBladder infections are not contagious. You can't get one from someone else, from a toilet seat, orfrom sharing a bath.The most common cause of bladder infections is bacteria from the bowels. The bacteria get onto theskin around the opening of the urethra. From there, they can get into the urine and travel up to thebladder, causing inflammation and infection. This usually happens because of: Wiping improperly after urinating. Always wipe from front to back. Bowel incontinence Procedures such as having a catheter inserted Older age Not emptying your bladder. This can allow bacteria a chance to grow in your urine. Dehydration Constipation Sex Use of a diaphragm for controlTreatment 4 General Instructions [facility] Emergency Department [address] [place] [address] Phone #: ext- [phone] 07/09/2020 15:48 Patient: IAN TREVINO A cct#: [id number] Sex: F : 1945 Age: 75yBladder infections are diagnosed by a urine test. They are treated with antibiotics and usually clear upquickly without complications. Treatment helps prevent a more serious kidney infection.MedicinesMedicines can help in the treatment of a bladder infection: Take antibiotics until they are used up, even if you feel better. It is important to finish them to make sure the infection has cleared. You can use acetaminophen or ibuprofen for pain, fever, or discomfort, unless another medicine was prescribed. If you have chronic liver or kidney disease, talk with your healthcare provider before using these medicines. Also talk with your provider if you've ever had a stomach ulcer or gastrointestinal bleeding, or are taking blood-thinner medicines. If you are given phenazopydridine to reduce burning with urination, it will cause your urine to become a bright orange color. This can stain clothing.Care and preventionThese self-care steps can help prevent future infections: Drink plenty of fluids to prevent dehydration and flush out your bladder. Do this unless you must restrict fluids for other health reasons, or your doctor told you not to. Proper cleaning after going to the bathroom is important. Wipe from front to back after using the toilet to prevent the spread of bacteria. Urinate more often. Don't try to hold urine in for a long time. Wear loose-fitting clothes and cotton underwear. Avoid tight-fitting pants. Improve your diet and prevent constipation. Eat more fresh fruit and vegetables, and fiber, and less junk and fatty foods. Avoid sex until your symptoms are gone. Avoid caffeine, alcohol, and spicy foods. These can irritate your bladder. Urinate right after intercourse to flush out your bladder. If you use control pills and have frequent bladder infections, discuss it with your doctor.Follow-up careCall your healthcare provider if all symptoms are not gone after 3 days of treatment. This is especiallyimportant if you have repeat infections. 5 General Instructions [facility] Emergency Department [address] [place] [address] Phone #: ext- [phone] 07/09/2020 15:48 Patient: IAN TREVINO Sex: F : 1945 Age: 75yIf a culture was done, you will be told if your treatmen t needs to be changed. If directed, you cancall to find out the results.If X- rays were done, you will be told if the results will affect your treatment.Call [phone] if any of the following occur: Trouble breathing Hard to wake up or confusion Fainting or loss of consciousness Rapid heart rateWhen to seek medical adviceCall your healthcare provider right away if any of these occur: Fever of 100.4F (38.0C) or higher, or as directed by your healthcare provider Symptoms are not better by the third day of treatment Back or belly (abdominal) pain that gets worse Repeated vomiting, or unable to keep medicine down Weakness or dizziness Vaginal discharge Pain, redness, or swelling in the outer vaginal area (labia) 2808-8117 [employer]. [address] [place] [address]. All rights reserved. This information is not intended as asubstitute for professional medical care. Always follow your healthcare professional's instructions.Diverticulosis 6 General Instructions [facility] Emergency Department [address] [place] [address] Phone #: ext- [phone] 07/09/2020 15:48 Patient: INA TREVINO Sex: F : 1945 Age: 75yDiverticulosis means that small pouches have formed in the wall of your large intestine (colon). Mostoften, this problem causes no symptoms and is common as people age. But the pouches in the colonare at risk of becoming infected. When this happens, the condition is called diverticulitis. Althoughmost people with diverticulosis never develop diverticulitis, it is still not uncommon. Rectal bleedingcan also occur and in less common situations, a type of colon in flammation called colitis.While most people don't have symptoms, some people with diverticulosis may have: Abdominal cramps and pain Bloating Constipation Change in bowel habitsCausesThe exact cause of diverticulosis (and diverticulitis) has not been proved, but a few things areassociated with the condition: Low-fiber diet Constipation Lack of exercise 7 General Instructions [facility] Emergency Department [address] [place] [address] Phone #: ext- [phone] 07/09/2020 15:48 Patient: IAN TREVINO Sex: F : 1945 Age: 75yYour healthcare provider will talk with you about how to manage your condition. Diet changes may lee that are needed to help control diverticulosis and prevent progression to diverticulitis. If youdevelop diverticulitis, you will likely need other treatments.Home careYou may be told to take fiber supplements daily. Fiber adds bulk to the stool so that it passes throughthe colon more easily. Stool softeners may also be recommended. You may also be given medicinesfor pain relief. Be sure to take all medicines as directed.In the past, people were told to avoid corn, nuts, and seeds. This is no longer necessary.Follow these guidelines when caring for yourself at home: Eat unprocessed foods that are high in fiber. Whole-grains, fruits, and vegetables are good choices. Drink 6 to 8 glasses of water every day unless your healthcare provider has you limit how much fluid you should have. Watch for changes in your bowel movements. Tell your provider if you notice any changes. Begin an exercise program. Ask your provider how to get started. Generally, walking is the best. Get plenty of rest and sleep.Follow-up careFollow up with your healthcare provider, or as advised. Regular visits may be needed to check onyour health. Sometimes special procedures such as colonoscopy, are needed after an episode ofdiverticulitis or blooding. Be sure to keep all your appointments.If a stool sample was taken, or cultures were done, you should be told if they are positive, or if yourtreatment needs to be changed. You can call as directed for the results.If X-rays were done, a radiologist will look at them. You will be told if there is a change in yourtreatment.If antibiotics were prescribed, be sure to finish them all.When to seek medical adviceCall your healthcare provider right away if any of these occur: Fever of 100.4F (38C) or higher, or as directed by your healthcare provider 8 General Instructions [facility] Emergency Department [address] [place] [address] Phone #: ext- [phone] 07/09/2020 15:48 Patient: IAN TREVINO Sex: F : 1945 Age: 75y Severe cramps in the lower left side of the abdomen or pain that is getting worse Tenderness in the lower left side of the abdomen or worsening pain throughout the abdomen Diarrhea or constipation that doesn't get better within 24 hours Nausea and vomiting Bleeding from the rectumCall 911Call 911 if any of the following occur: Trouble breathing Confusion Very drowsy or trouble awakening Fainting or loss of consciousness Rapid heart rate Chest pain [id number] [employer]. [address] [place], [place] [address]. All rights reserved. This information is not intended as asubstitute for professional medical care. Always follow your healthcare professional's instructions. You have been given the following additional information: Bladder Infection, Female (Adult) Diverticulosis(Electronically signed by MINOR Burt 07/09/2020 21:18) Name Value Range Interpretation Code Description Data Elaine rce(s) Supporting Document(s) ID Date Data Source [id number] 07/09/2020 03:56:00 PM EST [facility] 1 Clinical Report - Nurses [facility] Emergency Department [address] [place] [address] Phone #: ext- [phone] 07/09/2020 15:48 Patient: IAN TREVINO Sex: F : 1945 Age: 75yTRIAGEArrived by private vehicle. Historian: patient. Unaccompanied. ( had ct scan at [facility] 1 week ago dx withdiverticulitis having problems voiding and defecating, given 2 AB , also had a pap smear givenlevofloxacin and had an allergic reaction).Acuity: LEVEL 3.Chief Complaint: ABDOMINAL PAIN.Alert.Onset. (1 month). ( distention). She has had abdominal pain. 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 Sepsis Screen negative. No suspected or confirmed signs ofinfection present. --16:04 07/09/20 Kaitlyn Roland R.N.15:49 07/09/20. BP: 133/75. MAP: 94. HR: 100. RR: 18. O2 saturation: 100% on room air. Temp: 97.5 F(oral). Pain level now: 12/31. --16:04 07/09/20 Kaitlyn Roland R.N.Weight: 80.7 kg stated. Height/Length: 61 inches Per Patient. BMI: 33.6. --15:49 07/09/20 Kaitlyn Roland R.N.MedicationsamLODIPine Besylate Oral (Tablet 5 mg), daily. --15:54 07/09/20 Kaitlyn Roland R.N. vitamin C with zinc. --15:55 07/09/20 Kaitlyn Roland R.N. Glucosamine HCl Oral (Tablet 1500 mg), 2x a day. --15:55 07/09/20 Kaitlyn Roland R.N. Centrum Silver Oral, daily. --15:56 07/09/20 Kaitlyn Roland R.N. Biotin Oral (Tablet 10264 mcg), daily. --15:56 07/09/20 Kaitlyn Roland R.N. Magnesium Oral (Capsule 400 mg) 1 capsule, 2x a day. --15:56 07/09/20 Kaitlyn Roland R.N. Vitamin E Oral (Capsule 400 unit), daily. --15:56 07/09/20 Kaitlyn Roland R.N. Krill Oil [place]-3 Oral (Capsule 500 mg), daily. Losartan Potassium Oral. --15:57 07/09/20 Kaitlyn Roland R.N. Losartan Potassium Oral (Tablet 100 mg), daily. --15:57 07/09/20 Kaitlyn Roland R.N. metFORMIN HCl Oral 500 mg, daily. --15:58 07/09/20 Kaitlyn Roland R.N. metFORMIN HCl Oral (Tablet 500 mg), daily at bedtime. --15:58 07/09/20 Kaitlyn Roland R.N. Fluticasone-Salmeterol Inhalation (Aerosol Powder Breath Activated 500-50 mcg/dose), daily. --15: Kaitlyn Roland R.N. Albu terol Sulfate HFA Inhalation (Aerosol Solution 108 (90 Base) mcg/act), as needed. --15: Kaitlyn Roland R.N. Atorvastatin Calcium Oral (Tablet 40 mg), daily. --15:59 07/09/20 Kaitlyn Roland R.N. 2 Clinical Report - Nurses [facility] Emergency Department [address] [place] [address] Phone #: ext- [phone] 07/09/2020 15:48 [id number] Sex: [facility] : 1945 Age: 75y Montelukast Sodium Oral (Tablet 10 mg), daily at bedtime. --16:00 07/09/20 Kaitlyn Roland R.N. Allergies levoFLOXacin. --15:54 07/09/20 Kaitlyn Roland R.N. ADDITIONAL SURGERIES: Cholecystectomy. Hysterectomy. --16:01 07/09/20 Kaitlyn Roland R.N. History PAST MEDICAL HX: Immunizations: up-to-date. The patient has had a hysterectomy. SOCIAL HX: Smoker- current status unknown (quit 50 years ago). No alcohol use or drug use. No recent travel. No known contact with a sick individ [facility]. She was offered HIV testing but declined and hepatitis C testing but declined. She has not traveled outside the [place] Infectious disease exposure: No infectious disease exposure. Patient is not a known carrier of tuberculosis, hepatitis, HIV, MRSA or VRE. Patient is not a known carrier of CRE. SELF HARM ASSESSMENT: Self harm assessment was performed. The patient answered "no" to the question(s) "Have you recently felt down, depressed, or hopeless?", "Do you have thoughts of harming or killing yourself?", "Do you have a plan for harming or killing yourself?", "Have you recently had thoughts about harming or killing others?", "Do you have any dangerous items in your possession?", "Have you noticed less interest or pleasure in doing things?", "Are you here because you tried to hurt yourself?" and "Have you ever tried to hurt yourself before today?". ABUSE ASSESSMENT: Abuse assessment. Abuse denied. No suspicion of abuse. No report of abuse. NUTRITIONAL RISK ASSESSMENT: The nutritional risk assessment revealed no deficiencies. FUNCTIONAL ASSESSMENT: Functional assessment: no impairments noted. LEARNING NEEDS ASSESSMENT: The learning needs assessment revealed no barriers. FALL RISK ASSESSMENT: Fall risk assessment completed. No risk factors identified. SKIN INTEGRITY ASSESSMENT: Skin integrity risk assessment completed. No skin integrity risk identified. --16:04 07/09/20 Kaitlyn Roland R.N. Interventions Identification band on patient. To treatment room. --16:04 07/09/20 Kaitlyn Roland R.N.PHYSICAL ASSESSMENTGENERAL / NEURO / PSYCH: Alert. Oriented X 4. Appears in no acute distress.RESPIRATORY: Respirations not labored.CVS: Normal sinus rhythm noted. 3 Clinical Report - Nurses [facility] Emergency Department [address] [place] [address] Phone #: ext- [phone] 07/09/2020 15:48 Patient: IAN TREVINO Sex: F : 1945 Age: 75y GI / : Abdominal tenderness in the right side of the abdomen and periumbilical area. SKIN: Skin is warm and dry. --16:38 07/09/20 Ruben Marinelli R.N.NURSING PROGRESS NOTESPatient gowned. Reassurance given. Two patient identifiers checked. Call light placed in reach. Siderails up x 2. Bed placed in lowest position. Brakes of bed on. Patient ready for evaluation- ED physicianestephania GAXIOLA notified. --16:05 07/09/20 Kaitlyn Roland R.N. 16:35 07/09/2020 Site #1 started via IV in the right forearm with an 20g angiocath; one attempt. --16:35 07/09/20 Ruben Marinelli R.N. 16:35 07/09/2020 Started bag #1 1000 mL IV Fluids NS; at 1000 mL/hr over 60 hour(s) via site #1 --16:35 07/09/20 Ruben Marinelli R.N. 16:35 07/09/2020 Zofran ODT PO 8 mg was refused by patient. --16:35 07/09/20 Ruben Marinelli R.N. 16:36 07/09/2020 Morphine IVP 2 mg (HIGH ALERT MEDICATION) was refused by patient. --16:36 07/09/20 Ruben Marinelli R.N. Reassurance given to the patient. The patient is resting quietly. Overall patient status is the same. --17:31 07/09/20 Ruben Marinelli R.N. 17:30 07/09/20. BP: 144/78. MAP: 100. HR: 72. RR: 18. O2 saturation: 99%. Temp: deferred. Pain level now: 0/10. --17:31 07/09/20 Ruben Marinelli R.N. Patient transported to CT by wheelchair with tech. --18:06 07/09/20 Ruben Marinelli R.N. Patient returned from radiology by wheelchair with tech. --18:25 07/09/20 [facility] formerAndrew, SANDRINE Tech1 19:00 07/09/20. BP: 124/75. MAP: 91. HR: 68. RR: 18. O2 saturation: 100%. Temp: deferred. Pain level now: 0/10. --19:01 07/09/20 Ruben Marinelli R.N. Reassurance given to the patient. ( pt in no discomfort waiting for CT results). --19:01 07/09/20 Ruben Marinelli R.N. 19:59 07/09/2020 IV Fluids NS via IV site #1 Discontinued: bag #1 infused. Total amount infused: 1000 mL. --20:24 07/09/20 Ruben Marinelli R.N.DISPOSITION / DISCHARGE No learning barriers present. Discharge instructions provided and reviewed with the patient. The patient was discharged by the physician assistant attorney general. She was discharged home. She left ambulatory and via private vehicle. Patient driving. --20:23 07/09/20 Ruben Marinelli R.N. 4 Clinical Report - Nurses [facility] Emergency Department [address] [place] [address] Phone #: ext- [phone] 07/09/2020 15:48 Patient: IAN TREVINO Sex: F : 1945 Age: 75y 20:22 07/09/20. BP: 121/65. MAP: 83. HR: 72. RR: 18. O2 saturation: 98%. Temp: deferred. Pain level now: 0/10. --20:23 07/09/20 Ruben Marinelli R.N. Departure time: 20:23 07/09/2020. --20:23 07/09/20 Ruben Marinelli R.N.Locked/Released at 07/09/2020 20:24 by Ruben Marinelli R.N. Name Value Range Interpretation Code Description Data Elaine rce(s) Supporting Document(s) ID Date Data Source [id number] 07/09/2020 03:56:00 PM EST [facility] 1 Clinical Report - Physicians/Mid Levels [facility] Emergency Department [address] [place] [address] Phone #: ext- [phone] 07/09/2020 15:48 Patient: IAN TREVINO Sex: F : 1945 Age: 75y Time Seen: 16:10 07/09/2020. Arrived- By ambulance. Historian- patient.HISTORY OF PRESENT ILLNESS Chief Complaint: ABDOMINAL PAIN. This started 1 months ago; had ct scan at [facility] 1 week ago dx with diverticulitis having problems voiding and defecating, given 2 AB , also had a pap smear given levofloxacin and had an allergic reaction. It was abrupt in onset and has been constant. It is described as "pain", sharp, cramping and burning and it is described as located in the periumbilical area. At its maximum, severity described as moderate. When seen in the E.D., severity described as moderate. No nausea, loss of appetite or vomiting. She has had diarrhea. Similar symptoms previously. Patient has had similar symptoms several times. Recent medical care: The patient was seen recently at another facility in the emergency department. REVIEW OF SYSTEMSThe patient is post-menopausal. She has had constipation, difficulty with urination, and pain on urinationbut not had weight loss. No black stools, hematemesis, bloody stools, fever or headache. No sorethroat, blurred vision, chest pain, difficulty breathing or cough. No joint pain, skin rash, chills or back pain.The patient has had urinary frequency. Last bowel movement: today.PAST HISTORYAdditional Surgeries:Cholecystectomy.Hysterectomy. Medications: Montelukast Sodium Oral (Tablet 10 mg), daily at bedtime. Atorvastatin Calcium Oral (Tablet 40 mg), daily. Albuterol Sulfate HFA Inh alation (Aerosol Solution 108 (90 Base) mcg/act), as needed. Fluticasone- Salmeterol Inhalation (Aerosol Powder Breath Activated 500-50 mcg/dose), daily. metFORMIN HCl Oral (Tablet 500 mg), daily at bedtime. metFORMIN HCl Oral 500 mg, daily. Losartan Potassium Oral (Tablet 100 mg), daily. Krill Oil [place]-3 Oral (Capsule 500 mg), daily. Losartan Potassium Oral. Vitamin E Oral (Capsule 400 unit), daily. Magnesium Oral (Capsule 400 mg) 1 capsule, 2x a day. Biotin Oral (Tablet 34817 mcg), daily. Centrum Silver Oral, daily. Glucosamine HCl Oral (Tablet 1500 mg), 2x a day. 2 Clinical Report - Physicians/Mid Levels [facility] Emergency Department [address] [place] [address] Phone #: ext- [phone] 07/09/2020 15:48 Patient: IAN TREVINO Sex: F : 1945 Age: 75y vitamin C with zinc. amLODIPine Besylate Oral (Tablet 5 mg), daily. Allergies: levoFLOXacin.SOCIAL HISTORYFormer smoker. No alcohol use or drug use.PHYSICAL EXAMVital Signs: 07/09/2020 15:49 BP: 133/75. MAP: 94. HR: 100. RR: 18. O2 saturation: 100% on room air.Temp: 97.5 F. Pain level now: 5/10. Have been reviewed as normal. Oxygen saturation normal.Appearance: Alert. Oriented X3. No acute distress.Eyes: Pupils equal, round and reactive to light. Eyes normal inspection.ENT: Ears normal. Nose normal. Pharynx normal.Neck: Normal inspection.CVS: Normal heart rate. Heart sounds normal.Respiratory: No respiratory distress. Breath sounds normal.Abdomen: Soft. Tenderness diffusely. Bowel sounds normal. No organomegaly. Distention withtympany to percussion. Femoral pulses equal.Back: Normal inspection.Skin: Skin warm and dry. Normal skin color. No rash. Normal skin turgor.Extremities: Extremities exhibit normal ROM. No lower extremity edema.Neuro: Oriented X 3.LABS, X-RAYS, AND EKGCT Abdomen - Pelvis: Diverticulosis. No obstruction. Appendix not visualized. No free air or free fluid.Bilateral parapelvic renal cyst. No renal stones or evidence of hydronephrosis. Study type: upperabdomen; lower abdomen; pelvis. Abdomen - pelvic CT performed with IV contrast. The study wasinterpreted by the radiologist and contemporaneously by me. Interpretation time: 19:57 07/09/2020.Laboratory Tests: Laboratory tests have been ordered, with results reviewed and considered in themedical decision making process. CT Abd PEL W/ IV Contrast Only: (WON: 07/09/2020 16:21) ( MsgRcvd 07/09/2020 18:11) In Progress CT ABD Reason(s): Abdominal Pain TRANSPORTATION: IV? IV?(Yes) O2? Oxygen?(No) Ro CBC w Diff: (WON: 07/09/2020 16:43) ( MsgRcvd 07/09/2020 17:17) Final results Test Result Flag Units (Reference) CBC W/AUTOMATED DIFF COMPLETE BLOOD COUNT WBC 7.5 10/uL (4.2 - 11.0) RBC 4.86 10/uL (4.20 - 5.40) HEMOGLOBIN 13.6 g/dL (12.0 - 16.0) HEMATOCRIT 42.5 % (37.0 - 47.0) MCV 87.4 fL (81.0 - 101) 3 Clinical Report - Physicians/Mid Levels [facility] Emergency Department [address] [place] [address] Phone #: ext- [phone] 07/09/2020 15:48 -- Patient: IAN TREVINO Sex: F : 1945 Age: 75y MCH 28.0 pg (27.0 - 34.0) MCHC 32.0 g/dL (31.0 - 36.0) RDW 13.6 % (11.5 - 14.5) PLATELETS 257 10/uL (150 - 450) MPV 10.1 fL (7.4 - 10.4) NEUT 61.3 % (37.0 - 80.0) LYMPH 24.4 L % (25.0 - 40.0) MONO 10.5 H % (3.0 - 8.0) EOS 2.7 % (0.0 - 7.0) BASO 0.7 % (0.0 - 2.5) %IG 0.4 H % (0.0 - 0.0) %NRBC 0.0 % (0.0 - 0.0) #NEUT 4.58 10/uL (2.00 - 6.90) #LYMPH 1.82 10/uL (0.60 - 3.40) #MONO 0.78 10/uL (0.00 - 0.90) #EOS 0.20 10/uL (0.00 - 0.70) #BASO 0.05 10/uL (0.00 - 0.20) #IG 0.03 10/uL (0.00 - 0.10) #NRBC 0.00 10/uL (0.00 - 0.00) MANUAL DIFF NOT INDICATED RBC MORPH NOT INDICATEDCMP: (WON: 07/09/2020 16:43) ( MsgRcvd 07/09/2020 17:53) Final results Test Result Flag Units (Reference) COMPREHENSIVE METABOLIC PANEL COMPREHENSIVE METABOLIC PANEL SODIUM 144 mEq/L (134 - 153) POTASSIUM 4.4 mEq/L (3.6 - 5.0) CHLORIDE 104 mEq/L (98 - 107) CO2 32 H MEQ/L (22 - 30) GLUCOSE 129 H MG/DL (65 - 110) BUN 18 MG/DL (7 - 21) CREATININE 0.5 L MG/DL (0.7 - 1.5) BUN/CREAT 36 H (8 - 27) TOTAL PROTEIN 6.3 G/DL (6.3 - 8.2) ALBUMIN 4.5 G/DL (3.9 - 5.0) GLOBULIN 1.8 L GM/DL (2.4 - 3.2) A/G RATIO 2.5 H (0.8 - 2.0) CALCIUM 10.1 MG/DL (8.4 - 10.2) TOTAL BILI <0.7 MG/DL (0.2 - 1.3) ALKALINE PHOS 85 U/L (38 - 126) SGOT/AST 19 U/L (5 - 40) SGPT/ALT 17 U/L (7 - 56) ANION GAP 8.0 mmol/L (8.0 - 16.0) AGE 75 yrs NON-AA GFR >60 mL/min AFR AMER GFR >60 Male GFR Interprentation 20-49 yrs >60 mL/min Vvhhjc56-31 yrs >56 mL/min Normal 60-69 yrs >49 mL/min Normal 70-79yrs>42 mL/min Normal 80 and above >35 mL/min Normal Female GFRInterpretation 20-39 yrs >60 mL/min Normal 40-49 yrs >58 mL/minNormal 50-59 yrs >51 mL/min Normal 60-69 yrs >45 mL/min Rgdmsc97-77 yrs >39 mL/min Normal 80 and above >32 mL/min NormalLipase: (WON: 07/09/2020 16:43) ( MsgRcvd 07/09/2020 17:53) Final results Test Result Flag Units (Reference) LIPASE 43 U/L (13 - 60) 4 Clinical Report - Physicians/Mid Levels [facility] Emergency Department [address] [place] [address] Phone #: ext- [phone] 07/09/2020 15:48 [id number] Sex: F : 1945 Age: 75y Urinalysis: (WON: 07/09/2020 16:30) ( MsgRcvd 07/09/2020 16:48) Final results Test Result Flag Units (Reference) URINALYSIS URINALYSIS SOURCE R COLOR yellow (NORMAL: Yello CLARITY clear (NORMAL: Clear SPEC GRAVITY 1.005 (1.001 - 1.030 pH 7 (5 - 9) GLUCOSE NORM (NORMAL: Negat BILIRUBIN NEG (NORMAL: Negat KETONE NEG (NORMAL: Negat PROTEIN NEG (NORMAL: Negat NITRITE NEG (NORMAL: Negat BLOOD NEG (NORMAL: Negat LEUK EST 500 A (NORMAL: Negat UROBILINOGEN NOR (less than 1.0 MICROSCOPIC See Below WBC 3 - 5 (NORMAL: NONE EPITHELIAL FEW (NORMAL: NONE BACTERIA Trace (NORMAL: NONE Lactic Acid: (WON: 07/09/2020 16:43) ( MsgRcvd 07/09/2020 17:29) Final results Test Result F lag Units (Reference) LACTIC ACID 1.5 MMOL/L (0.2 - 2.2).PROGRESS AND PROCEDURESCourse of Care: 19:57 Jul 09 2020. Evaluation after observation. (Discussed risks, benefits, options andpt is agreeable with dx and tx plan.). Patient counseled in person regarding the patient's stable condition, test results, diagnosis and need for follow-up. Patient agrees with plan of care. 19:58 Jul 09 2020. Disposition: Discharged in good and improved condition (19:58 Jul 09 2020).CLINICAL IMPRESSION Acute diverticulosis of the small bowel. No perforation, bleeding or abscess. Acute urinary tract infection with cystitis and hematuria.INSTRUCTIONS Your Current Medications: Your current home medications have been reviewed. CONTINUE TAKING THE FOLLOWING MEDICATIONS: Albuterol Sulfate HFA Inhalation : Aerosol Solution 108 (90 Base) mcg/act, prn. 5 Clinical Report - Physicians/Mid Levels [facility] Emergency Department [address] [place] [address] Phone #: ext- [phone] 07/09/2020 15:48 Patient: IAN TREVINO Sex: F : 1945 Age: 75y amLODIPine Besylate Oral : Tablet 5 mg, daily. Atorvastatin Calcium Oral : Tablet 40 mg, daily. Biotin Oral : Tablet 62108 mcg, daily. Centrum Silver Oral : daily. Fluticasone-Salmeterol Inhalation : Aerosol Powder Breath Activated 500-50 mcg/dose, daily. Glucosamine HCl Oral : Tablet 1500 mg, 2x a day. Krill Oil [place]-3 Oral : Capsule 500 mg, daily. Losartan Potassium Oral : Tablet 100 mg, daily. Losartan Potassium Oral. Magnesium Oral : Capsule 400 mg, 1 capsule 2x a day. metFORMIN HCl Oral : Tablet 500 mg, daily, at bedtime. metFORMIN HCl Oral : 500 mg daily. Montelukast Sodium Oral : Tablet 10 mg, daily, at bedtime. vitamin C with zinc*. Vitamin E Oral : Capsule 400 unit, daily. Prescription Medications: cefdinir 300 mg capsule Take 1 capsule twice a day for 7 days -- Dispense 14 capsule. Refills: 0. Substitution permitted. [email or web address] #09 - [id number] [facility] ; [place] [address]. . Follow-up: Follow up with your doctor tomorrow. Call for the next available appointment. Reason for referral: evaluation, treatment and Refer to GI specialist for further evaluation if symptoms persist.. Summary of care provided to patient. Understanding of the discharge instructions verbalized by patient.(Electronically signed by MINOR Burt 07/09/2020 21:18) Name Value Range Interpretation Code Description Data [facility](s) Supporting Document(s) ID Date Data Source [id number] 07/09/2020 03:56:00 PM [facility] IAN Coy VisitID: [id number] Date: 21:56cefdinir 300 mg capsule Take 1 capsule twice a day for 7 days -- Dispense 14 capsule. Refills: 0.Substitution permitted.[email or web address] #08 - [id number] ; [place], [place] [id number]. .(Electronically signed by Wilfredo GAXIOLA - 07/09/2020 21:56) Name Value Range Interpretation Code Description Data Elaine rce(s) Supporting Document(s) ID Date Data Source [id number] 07/09/2020 05:53:00 PM [facility] Name Value Range Interpretation Code Description Data Elaine rce(s) Supporting Document(s) Lipase [Enzymatic activity/volume] in Serum or Plasma 43 U/L 13 - 60 [facility] ID Date Data Source [id number] 07/09/2020 05:53:00 PM [facility] Name Value Range Interpretation Code Description Data Elaine rce(s) Supporting Document(s) COMPREHENSIVE METABOLIC PANEL [facility] COMPREHENSIVE METABOLIC PANEL Sodium [Moles/volume] in Serum or Plasma 144 mEq/L 134 - 153 [facility] Potassium [Moles/volume] in Serum or Plasma 4.4 mEq/L 3.6 - 5.0 [facility] Chloride [Moles/volume] in Serum or Plasma 104 mEq/L 98 - 107 [facility] Carbon dioxide, total [Moles/volume] in Serum or Plasma 32 MEQ/L 22 - 30 H [facility] Glucose [Mass/volume] in Serum or Plasma 129 MG/DL 65 - 110 H [facility] BUN 18 MG/DL 7 - [facility] Creatinine [Mass/volume] in Serum or Plasma 0.5 MG/DL 0.7 - 1.5 L [facility] BUN/CREAT 36 8 - 27 H [facility] al Protein [Mass/volume] in Serum or Plasma 6.3 G/DL 6.3 - 8.2 [facility] Albumin [Mass/volume] in Serum or Plasma 4.5 G/DL 3.9 - 5.0 [facility] Globulin [Mass/volume] in Serum by calculation 1.8 GM/DL 2.4 - 3.2 L [facility] A/G RATIO 2.5 0.8 - 2.0 H [facility] al Calcium [Mass/volume] in Serum or Plasma 10.1 MG/DL 8.4 - 10.2 [facility] Bilirubin.total [Mass/volume] in Serum or Plasma <0.7 MG/DL 0.2 - 1.3 [facility] Alkaline phosphatase [Enzymatic activity/volume] in Serum or Plasma 85 U/L 38 - 126 [facility] Aspartate aminotransferase [Enzymatic activity/volume] in Serum or Plasma 19 U/L 5 - 40 [facility] Alanine aminotransferase [Enzymatic activity/volume] in Seru m or Plasma 17 U/L 7 - 56 [facility] Anion gap 3 in Serum or Plasma 8.0 mmol/L 8.0 - 16.0 [facility] AGE 75 yrs [facility] Hospit al NON-AA GFR >60 mL/min [facility] Hosp ital AFR AMER GFR >60 [facility] Hos pital Male GFR In terprentation 20-49 yrs >60 mL/min Normal 50-59 yrs >56 mL/min Normal 60-69 yrs >49 mL/min Normal 70-79yrs >42 mL/min Normal 80 and above >35 mL/min Normal Female GFR Interpretation 20-39 yrs >60 mL/min Normal 40-49 yrs >58 mL/min Normal 50-59 yrs >51 mL/min Normal 60-69 yrs >45 mL/min Normal 70-79 yrs >39 mL/min Normal 80 and above >32 mL/min Normal ID Date Data Source [id number] 07/09/2020 05:29:00 PM [facility] Name Value Range Interpretation Code Description Data Elaine rce(s) Supporting Document(s) Lactate [Moles/volume] in Serum or Plasma 1.5 MMOL/L 0.2 - 2.2 [facility] ID Date Data Source [id number] 07/09/2020 05:17:00 PM [facility] Name Value Range Interpretation Code Description Data Elaine rce(s) Supporting Document(s) CBC W/AUTOMATED DIFF [facility] COMPLETE BLOOD COUNT Leukocytes [#/volume] in Blood by Automated count 7.5 10^3/uL 4.2 - 1 1.0 [facility] Erythrocytes [#/volume] in Blood by Automated count 4.86 10^6/uL 4. 20 - 5.40 [facility] Hemoglobin [Mass/volume] in Blood 13.6 g/dL 12.0 - 16.0 [facility] Hematocrit [Volume Fraction] of Blood by Automated count 42.5 % 3 7.0 - 47.0 [facility] Erythrocyte mean corpuscular volume [Entitic volume] by Auto mated count 87.4 fL 81.0 - 101 [facility] Erythrocyte mean corpuscular hemoglobin [Entitic mass] by Automated count 28.0 pg 27.0 - 34.0 [facility] Erythrocyte mean corpuscular hemoglobin concentration [Mass/volume] by Automated count 32.0 g/dL 31.0 - 36.0 [facility] Erythrocyte distribution width [Ratio] by Automated count 13.6 % 11.5 - 14.5 [facility] Platelets [#/volume] in Blood by Automated count 257 10^3/uL 150 - 45 0 [facility] Platelet mean volume [Entitic volume] in Blood by Automated count 10.1 fL 7.4 - 10.4 [facility] Neutrophils/100 leukocytes in Blood by Automated count 61.3 % 37. 0 - 80.0 [facility] Lymphocytes/100 leukocytes in Blood by Manual count 24.4 % 25.0 - 40.0 L [facility] Monocytes/100 leukocytes in Blood by Automated count 10.5 % 3.0 - 8.0 H [facility] Eosinophils/100 leukocytes in Blood by Automated count 2.7 % 0.0 - 7.0 [facility] Basophils/100 leukocytes in Blood by Automated count 0.7 % 0.0 - 2.5 [facility] %IG 0.4 % 0.0 - 0.0 H [facility] Hospit al %NRBC 0.0 % 0.0 - 0.0 [facility] al Neutrophils [#/volume] in Blood by Automated count 4.58 10^3/uL 2.00 - 6.90 [facility] Lymphocytes [#/volume] in Blood by Automated count 1.82 10^3/uL 0.60 - 3.40 [facility] Monocytes [#/volume] in Blood by Automated count 0.78 10^3/uL 0.00 - 0.90 [facility] Eosinophils [#/volume] in Blood by Automated count 0.20 10^3/uL 0.00 - 0.70 [facility] Basophils [#/volume] in Blood by Automated count 0.05 10^3/uL 0.00 - 0.20 [facility] #IG 0.03 10^3/uL 0.00 - 0.10 [facility] #NRBC 0.00 10^3/uL 0.00 - 0.00 [facility] MANUAL DIFF NOT INDICATED [facility] RBC MORPH NOT INDICATED [facility] spital ID Date Data Source [id number] 07/13/2020 02:36:00 PM EST [facility] Name Value Range Interpretation Code Description Data Elaine rce(s) Supporting Document(s) CULTURE URINE [facility] _CULTURE URINE_$$[id number]$$[id number]$$[id number]$$[id number]$$[id number]$$[id number]$$[id number]$$[id number]$$[id number]$$ 460722$$655032$$[id number]$$[id number]$$191829$$045931$$262037$$[id number]$$[id number]$$[id number]$$ 836680$$183462$$[id number]$$[id number]$$302562$$[id number]$$[id number]$$[id number] -- Continued on next page --Patient: BELINDA SOSA Order: [id number] Page 2Culture: CULTURE URINE Status: Final ==== -- Continued on next page --Patient: BELINDA SOSA Order: [id number] Page 2Culture: CULTURE URINE Status: Prelim =====$$[id number]$$[id number] DATE/TIME: 07/13/2020 14:07Culture: CULTURE URINE Status: FinalUrine Culture,Comprehensive: P1No growth in 36 - 48 hours. 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 : 07/12/[email or web address] REF 07/13/[id number] REF ID Date Data Source [id number] 07/09/2020 04:43:00 PM EST [facility] Name Value Range Interpretation Code Description Data Elaine rce(s) Supporting Document(s) [facility] COLOR yellow NORMAL: Yellow [facility] CLARITY clear NORMAL: Clear [facility] Specific gravity of Urine by Test strip 1.005 1.001 - 1.030 [facility] pH 7 5 - 9 [facility] Glucose [Mass/volume] in Urine by Test strip NORM NORMAL: Negat [facility] Bilirubin.total [Presence] in Urine by Test strip NEG NORMAL: Negative [facility] Ketones [Presence] in Urine by Test strip NEG NORMAL: Negative [facility] Protein [Mass/volume] in Urine by Test strip NEG NORMAL: Negat [facility] Nitrite [Presence] in Urine by Test strip NEG NORMAL: Negative [facility] BLOOD NEG NORMAL: Negative [facility] Leukocyte esterase [Presence] in Urine by Test strip 500 CASSIA L: Negative A [facility] Urobilinogen [Mass/volume] in Urine by Test strip NOR less kevan n 1.0 mg/dL [facility] MICROSCOPIC See Below [facility] WBC 3 - 5 NORMAL: NONE SEEN [facility] EPITHELIAL FEW NORMAL: NONE SEEN [facility] Bacteria [Presence] in Urine sediment by Light microscopy Tr dominique NORMAL: NONE SEEN [facility] ID Date Data Source [id number] 06/22/2020 02:16:00 PM EDT [facility] ([facility]) Name Value Range Interpretation Code Description Data Elaine rce(s) Supporting Document(s) Bacteria identified in Genital specimen by Aerobe cult ure Laboratory test result [facility] ) <content>FULL REPORT IN LAB NOTES (eCW a nd [facility]).</content>
<content></content>
<content>ORGANISM 1: STREP AGALACTIAE GROUP B</content>
<content></content>
<content>QUANTITY OF GROWTH HEAVY</content>
<content></content>
<content></content>
<content>ORG ANISM 1: STREP AGALACTIAE GROUP B</content>
<content></content>
<content>STREP AGALACTIAE GROUP B: REACTION</content>
<content>ICR (INDUCIBLE CC RESISTANCE) IV ICR TEST RESULT</content>
<content>TETRACYCLINE PO 250 mg qid >=16 R</content>
<content>PENICILLIN G IV 1 mu q6H 0.12 S</content>
<content>PENICILLIN G IV 1 mu q6h 0.12 S</content>
<content>PENICILLIN G PO 250mg q6h fasting 0.12 S</content>
<content>AMPICILLIN IV 500mg q6h <=0.25 S</content>
<content> AMPICILLIN PO 500mg q6h fasting <=0.25 S</content>
<content>ERYTHROMYCIN IV 500mg q6h 2 R</content>
<content>ERYTHROMYCIN PO 500mg q6h 2 R</content>
<content>LEVOFLOXACIN IV 500mg qd 0.5 S</content>
<content>LEVOFLOXACIN PO 250mg qd 0.5 S</content>
<content>LEVOFLOXACIN PO 500mg qd 0.5 S</content>
<content>VANCOMYCIN IV 500mg q8h 0.5 S</content>
<content>MOXIFLOXACIN (AVELOX) IV 400MG QD 0.12 S</content>
<content>MOXIFLOXACIN (AVELOX) PO 400MG QD 0.12 S</content>
<content>CEFTRIAXONE IV 1gm q24h <=0.12 S</content>
<content>CEFOTAXIME IV 1gm q8h <=0.12 S</content>
<content>An isolate with a (+) POSITIVE ICR test is considered</content>
<content>CLINDAMYCIN RESISTANT; however, clindamycin may still</content>
<content>be effective in some patients.</content>
<content>An isolate with a (-) NEGATIVE ICR test is considered</content>
<content>CLIDAMYCIN SENSITIVE.</content>
<content></content> ID Date Data Source [id number] 05/23/2020 05:06:00 PM EDT [facility] Name Value Range Interpretation Code Description Data Elaine rce(s) Supporting Document(s) Reflex Urine Culture Laboratory test result [facility] ([facility]) FULL REPORT IN LAB NOTES (eCW and [facility] ). NO GROWTH CLINICAL SIGNIFICANCE 1 ORGANISM ID Date Data Source [id number] 05/23/2020 05:06:00 PM EDT [facility] ([facility] Name Value Range Interpretation Code Description Data Elaine rce(s) Supporting Document(s) Lipoprotein lipase [Enzymatic activity/volume] in Serum or P lasma 129 U/L 73-393 [facility] ([facility]) ID Date Data Source [id number] 05/23/2020 05:06:00 PM EDT [facility] ([facility] Name Value Range Interpretation Code Description Data Elaine rce(s) Supporting Document(s) Glucose, Fasting 116 mg/dL 70-100 [facility] ([facility] Creatinine For GFR 0.62 mg/dL 0.55-1.30 [facility] ([facility]) Blood Urea Nitrogen 18 mg/dL 7-18 [facility] Glomerular Filtration Rate Laboratory test result [facility] ([facility]) <content>Units are mL/min/1.73 m2</content>
<content></content>
<content>Chronic Kidney Disease Staging per NKF:</content>
<content></content>
<content>Stage I & II GFR >=60 Normal to Mildly Decreased</content>
<content>Stage III GFR 30-59 Moderately Decreased</content>
<content>Stage IV GFR 15-29 Severely Decreased</content>
<content>Stage V GFR <15 Very Little GFR Left</content>
<content>ESRD GFR <15 on SALES SERVICE ROUTE MANAGER</content>
<content></content> Chloride Level 112 meq/L 98-107 [facility] ([facility]) Potassium Serum 4.0 meq/L 3.5-5.1 [facility] ([facility]) Sodium Level 144 meq/L 136-145 [facility] ([facility]) Anion Gap 8 meq/L 8-16 [facility] ([place] [facility]) Carbon Dioxide Level 24 meq/L 21-32 [facility] ([facility]) Calcium Level 9.6 mg/dL 8.8-10.2 [facility] ([facility]) ID Date Data Source [id number] 05/23/2020 05:06:00 PM EDT [facility] ([facility]) Name Value Range Interpretation Code Description Data Elaine rce(s) Supporting Document(s) Alt/SGPT 24 U/L 12-78 [facility] ([place] [facility]) Ast/Sgot 17 U/L 7-37 [facility] ([place] [facility]) Alkaline Phosphatase 93 U/L 45-117 [facility] ([facility]) Bilirubin,Total 0.3 mg/dL 0.2-1.0 [facility] ([facility]) Bilirubin,Direct Laboratory test result 0.0-0.2 [facility] ([facility]) Albumin/Globulin Ratio 1.4 1.2-2.2 [facility] ([facility]) Albumin 3.9 GM/DL 3.2-5.2 [facility] ([place] [facility]) Total Protein 6.7 GM/DL 6.4-8.2 [facility] ([facility]) ID Date Data Source [id number] 05/23/2020 05:06:00 PM EDT [facility] ([facility]) Name Value Range Interpretation Code Description Data Elaine rce(s) Supporting Document(s) White Blood Count 7.8 10 4.0-10.0 [facility] ([facility]) Red Blood Count 4.61 10 4.00-5.40 [facility] ([facility]) Hemoglobin 12.5 g/dL 12.0-15.5 [facility] [facility]) Hematocrit 40.2 % 36.0-47.0 [facility] [facility]) Mean Corpuscular Hemoglobin 27.1 pg 27.0-33.0 ME D[facility] ([facility]) Mean Corpuscular Volume 87.2 fl 80.0-96.0 [facility] ([facility]) Neutrophils % 59.0 % 36.0-66.0 [facility] ([facility]) Mean Corpuscular HGB Conc 31.1 g/dL 32.0-36.5 MEDE NT ([facility]) Platelet Count, Automated 235 10 150-450 [facility] NT ([facility]) Red Cell Distribution Width 14.0 % 11.5-14.5 [facility] ([facility]) Lymph % 25.3 % 24.0-44.0 [facility] ([place] [facility]) Amite % 11.0 % 0.0-5.0 [facility] [facility]) Eos % 3.8 % 0.0-3.0 [facility] [facility]) Immature Granulocyte % 0.3 % 0-3.0 [facility] ([facility]) Nucleated Red Blood Cell % 0.0 % 0-0 MED ENT ([facility]) Baso % 0.6 % 0.0-1.0 [facility] ([place] [facility]) Neutrophils # 4.6 10 1.5-8.5 [facility] ([facility]) Lymph # 2.0 10 1.5-5.0 [facility] ([place] [facility]) Amite # 0.9 10 0.0-0.8 [facility] ([place] [facility]) Eos # 0.3 10 0.0-0.5 [facility] [facility] Baso # 0.1 10 0.0-0.2 [facility] [facility] ID Date Data Source [id number] 05/23/2020 05:06:00 PM EDT [facility] ([facility] Name Value Range Interpretation Code Description Data Elaine rce(s) Supporting Document(s) Appearance, Urine RFX Laboratory test result [facility] ([place] [facility] PH,Urine RFX 6.0 units 5.0-9.0 [facility] [facility] Color, Urine RFX [facility] [facility] Glucose, Urine (Ua) Auto RFX Laboratory test result [facility] ([place] [facility] Protein, Urine Auto RFX [facility] [facility] Specific [place] Ur Auto RFX 1.003 1.002-1.035 [facility] [facility] Ketone, Urine Auto RFX Laboratory test result [facility] ([place] [facility] Bilirubin, Urine Auto RFX [facility] [facility] Urobilinogen, Urine Auto RFX 0.2 mg/dL 0.0-2.0 [facility] [facility] Nitrite, Urine Auto RFX Laboratory test result [facility] ([place] [facility] Leukocyte Esterase Ur Auto RFX Laboratory test result [facility] ([place] [facility] Blood, Urine Blood RFX Laboratory test result [facility] ([place] [facility] WBC, Urine Auto RFX 10 /HPF 0-3 [facility] ([facility]) RBC, Urine Auto RFX 3 /HPF 0-3 [facility] ([facility] Bacteria, Urine Auto RFX Laboratory [facility] [facility] Squam Epithelial Cell Ur Aurfx 1 /HPF 0-6 [facility] [facility] Hyaline Cast, Urine Auto RFX 0 /LPF 0-1 M [facility] ([place] [facility] ID Date Data Source [id number] 04/05/2020 10:24:00 AM EDT [facility] Name Value Range Interpretation Code Description Data Elaine rce(s) Supporting Document(s) Glucose [Mass/volume] in Serum or Plasma 95 mg/dL 74-99 [facility] ([facility]) 100-125 mg/dL PRE-DIABETES/FASTING >126 mg/dL DIABETES/FASTING Urea nitrogen [Mass/volume] in Serum or Plasma 23 mg/dL 7-18 [facility] ([facility]) Creatinine 0.8 mg/dL 0.6-1.3 [facility] ([facility]) Sodium [Moles/volume] in Serum or Plasma 145 meq/L 136-145 [facility] ([facility]) Potassium [Moles/volume] in Serum or Plasma 4.4 meq/L 3.5-5.1 [facility] ([facility]) Carbon dioxide, total [Moles/volume] in Serum or Plasma 31 meq/L 21 -32 [facility] ([facility]) Calcium [Mass/volume] in Serum or Plasma 9.4 mg/dL 8.5-10.1 [facility] ([facility]) Chloride [Moles/volume] in Serum or Plasma 106 meq/L 98-107 [facility] ([facility]) Glomerular filtration rate/1.73 sq M pre dicted among non-blacks [Volume Rate/Area] in Serum or Plasma by Creatinine-based formula (MDRD) [facility] [facility] Glomerular filtration rate/1.73 sq M pre dicted among blacks [Volume Rate/Area] in Serum or Plasma by Creatinine-based formula (MDRD) Laboratory test result [facility] ([facility]) <content>CHRONIC KIDNEY DISEASE STAGING PER NKF</content>
<content></content>
<content>STAGE I & II GFR >= 60 NORMAL TO MILDLY DECREASED</content>
<content>STAGE III GFR 30-59 MODERATELY DECREASED</content>
<content>STAGE IV GFR 15-29 SEVERELY DECREASED</content>
<content>STAGE V GFR <15 VERY LITTLE GFR LEFT</content>
<content>ESRD GFR <15 ON SALES SERVICE R[employer]TE MANAGER</content>
<content></content> ID Date Data Source [id number] 04/05/2020 10:24:00 AM EDT [facility] ([facility]) Name Value Range Interpretation Code Description Data Elaine rce(s) Supporting Document(s) Glucose mean value [Mass/volume] in Blood Estimated fr om glycated hemoglobin 148 mg/dL 60-110 [facility] Hemoglobin A1c/Hemoglobin.total in Blood 6.8 g/dL 4.8-5.6 [facility] [facility] Lab Result Notes: Pre-Diabetes 5.7 - 6.4 % Diabetes = or > 6.5% ID Date Data Source [id number] 04/05/2020 10:24:00 AM EDT [facility] ([facility]) Name Value Range Interpretation Code Description Data Elaine rce(s) Supporting Document(s) Hemoglobin A1c/Hemoglobin.total in Blood [facility] ID Date Data Source [id number] 11/23/2019 10:24:00 AM EDT [facility] ([facility], ) Name Value Range Interpretation Code Description Data Elaine rce(s) Supporting Document(s) PDFReport Laboratory test result [facility] ([facility], ) FVC-%Pred-Pre 82 L [facility] ([facility], ) FVC-Pred 2.43 L [facility] ([facility]) FVC-Pre 2.00 L [facility] ([facility]) FVC-LLN 1.81 L [facility] ([facility]) Fev1-Pred 1.82 L [facility] ([facility]) Fev1-%Pred-Pre 77 L [facility] ([facility]) Fev1-Pre 1.40 L [facility] ([facility]) Fev6-Pred 2.31 L [facility] ([facility]) Fev6-Pre 2.00 L [facility] ([facility]) Fev1-LLN 1.29 L [facility] ([facility]) Fev6-LLN 1.70 L [facility] ([facility]) Fev6-%Pred-Pre 86 L [facility] ([facility]) Utu8lan-Ncv 70 % [facility] ([facility]) Vta2agt-Vxnu 75 % [facility] ([facility]) Bum1jvz-%Pred-Pre 93 % [facility] ([facility]) Rue2pvs-RYH 65 % [facility] ([facility]) Jvd4iij-Wijc 95 % [facility] ([facility]) FEFMax-Pre 4.00 L/E/sec [facility] ([facility]) Axe7dpe-Gnj 100 % [facility] ([facility]) FEFMax-Pred 4.81 L/E/sec [facility] ([facility]) Sjx9bcq-%Pred-Pre 105 % [facility] ([facility]) FEFMax-%Pred-Pre 83 L/E/sec [facility] ([facility]) Wwc4002-%Pred-Pre 56 L/E/sec [facility] ([facility]) Zly3289-Isfo 1.51 L/E/sec [facility] ([facility]) Jfx9456-Omz 0.85 L/E/sec [facility] ([facility]) FEFMax-LLN 3.27 L/E/sec [facility] ([facility]) ExpTime-Pre 7.42 sec [facility] ([facility]) Mjz7jqn2-Asil 79 % [facility] ([facility]) Udw1329-XQY 0.40 L/E/sec [facility] ([facility]) Ftp0dsp6-Ohh 70 % [facility] ([facility]) Vol9csz0-NCT 70 % [facility] ([facility]) Omn4nko1-%Pred-Pre 89 % [facility] ([facility]) Procedure Social History Code Duration Value Status Description Data Source(s ) Smoking 01/25/2020 12:00:00 AM EDT - 08/24/1979 12:00:00 AM EST Patient is a former smoker completed Patient is a former smoker [facility] Vital Signs ID Date Data Source UNK Name Value Range Interpretation Code Description Data Source(s) Body temperature 97.3 [degF] 97.3 [degF] [facility] ([facility]) Body weight 84.370 kg 84.370 kg [facility] Body mass index (BMI) [Ratio] 35.1 kg/m2 35.1 k g/m2 [facility] ([facility]) Heart rate 89 /min 89 /min [facility]) Diastolic blood pressure 82 mm[Hg] 82 mm[Hg] [facility] ([facility]) Systolic blood pressure 135 mm[Hg] 135 mm[Hg] M [facility] ([facility]) Body weight 186.00 [lb_av] 186.00 [lb_av] MED[facility] T ([facility]) Body height 61 [in_i] 61 [in_i] [facility]) 5'1" Body mass index (BMI) [Ratio] 35.5 kg/m2 35.5 k g/m2 [facility] ([facility]) Oxygen saturation in Arterial blood by Pulse oximetry 97 % 97 % [facility] RM Air Body weight 182.00 [lb_av] 182.00 [lb_av] [facility] T ([facility]) Body height 60 [in_i] 60 [in_i] [facility] 5'0" Heart rate 94 /min 94 /min [facility] ([facility]) Diastolic blood pressure 74 mm[Hg] 74 mm[Hg] [facility] ([facility]) Systolic blood pressure 138 mm[Hg] 138 mm[Hg] [facility] Body mass index (BMI) [Ratio] 36.3 kg/m2 36.3 k g/m2 [facility] ([facility]) Body weight 186.00 [lb_av] 186.00 [lb_av] MED[facility] T ([facility]) Body height 60 [in_i] 60 [in_i] [facility] ([facility]) 5'0" Heart rate 88 /min 88 /min [facility] ([facility]) Diastolic blood pressure 84 mm[Hg] 84 mm[Hg] [facility] ([facility]) RT Arm Systolic blood pressure 162 mm[Hg] 162 mm[Hg] [facility] ([facility]) RT Arm Body mass index (BMI) [Ratio] 35.5 kg/m2 35.5 k g/m2 [facility] ([facility]) Body weight 182.00 [lb_av] 182.00 [lb_av] [facility] Body height 60 [in_i] 60 [in_i] [facility] ([facility]) 5'0" Heart rate 84 /min 84 /min [facility] ([facility]) Diastolic blood pressure 72 mm[Hg] 72 mm[Hg] [facility] ([facility]) Systolic blood pressure 142 mm[Hg] 142 mm[Hg] [facility] ([facility]) Body mass index (BMI) [Ratio] 35.7 kg/m2 35.7 k g/m2 [facility] ([facility]) Oxygen saturation in Arterial blood by Pulse oximetry 96 % 96 % [facility] ([facility]) RM Air Body weight 183.00 [lb_av] 183.00 [lb_av] [facility] Body height 60 [in_i] 60 [in_i] [facility] ([facility]) 5'0" Heart rate 88 /min 88 /min [facility] ([facility]) Diastolic blood pressure 90 mm[Hg] 90 mm[Hg] [facility] ([facility]) Systolic blood pressure 140 mm[Hg] 140 mm[Hg] [facility] ([facility]) Body mass index (BMI) [Ratio] 36.5 kg/m2 36.5 k g/m2 [facility] ([facility]) Body weight 187.12 [lb_av] 187.12 [lb_av] [facility] Body height 60 [in_i] 60 [in_i] [facility] ([facility]) 5'0" Diastolic blood pressure 60 mm[Hg] 60 mm[Hg] [facility] ([facility]) Systolic blood pressure 120 mm[Hg] 120 mm[Hg] [facility] ([facility]) Body weight 87.715 kg 87.715 kg [facility] ([facility]) Body mass index (BMI) [Ratio] 37.1 kg/m2 37.1 k g/m2 [facility] ([facility]) Body weight 193.38 [lb_av] 193.38 [lb_av] MED[facility] T ([facility]) Body height 60.5 [in_i] 60.5 [in_i] [facility] ([facility]) 5'0.50" Body temperature 98.8 [degF] 98.8 [degF] [facility] ([facility]) Oxygen saturation in Arterial blood by Pulse oximetry 98 % 98 % [facility] ([facility]) Heart rate 88 /min 88 /min [facility] ([facility]) Diastolic blood pressure 78 mm[Hg] 78 mm[Hg] [facility] ([facility]) Systolic blood pressure 118 mm[Hg] 118 mm[Hg] [facility] ([facility]) Body weight 85.900 kg 85.900 kg [facility] [facility] ([facility]) Body mass index (BMI) [Ratio] 36.4 kg/m2 36.4 k g/m2 [facility] ([facility]) Body weight 189.38 [lb_av] 189.38 [lb_av] [facility] Body height 60.5 [in_i] 60.5 [in_i] [facility] ([facility]) 5'0.50" Body temperature 98.2 [degF] 98.2 [degF] [facility] ([facility]) Oxygen saturation in Arterial blood by Pulse oximetry 98 % 98 % [facility] ([facility]) Heart rate 90 /min 90 /min [facility] ([facility]) Diastolic blood pressure 86 mm[Hg] 86 mm[Hg] [facility] ([facility]) Systolic blood pressure 134 mm[Hg] 134 mm[Hg] [facility] ([facility])
[2020-10-10] MEDS ORDERED: propofoL 500 MG/50 ML VIAL As Ordered ONE (09:01)
[2020-10-10] MEDS ORDERED: LIDOCAINE 2% 100MG/5ML SDV (FOR ANES.) As Ordered ONE (09:01)
--- NOTE | 2020-10-10 09:15 | ROOR ---
Patient Name: Nimco Donald Procedure Date: 10/10/2020 8:57 AM Date of : 1945 Age: 75 Room: [facility] Gender: Female Note Status: Finalized Procedure: Total Colonoscopy to Cecum Indications: High risk colon cancer surveillance: Personal history of colonic polyps Providers: Efren Preciado MD Referring MD: Karin Baldwin DO Requesting Provider: Medicines: Monitored Anesthesia Care Complications: No immediate complications. Procedure: Pre-Anesthesia Assessment: - The heart rate, respiratory rate, oxygen saturations, blood pressure, adequacy of pulmonary ventilation, and response to care were monitored throughout the procedure. The Colonoscope was introduced through the anus and advanced to the cecum, identified by appendiceal orifice and ileocecal valve. The colonoscopy was performed without difficulty. The patient tolerated the procedure well. The quality of the bowel preparation was good. Findings: The perianal and digital rectal examinations were normal. Non-bleeding internal hemorrhoids were found during retroflexion. The hemorrhoids were small and Grade I (internal hemorrhoids that do not prolapse). Multiple small and large-mouthed diverticula were found in the recto-sigmoid colon, sigmoid colon and descending colon. The exam was otherwise without abnormality on direct and retroflexion views. Impression: - Non-bleeding internal hemorrhoids. - Diverticulosis in the recto-sigmoid colon, in the sigmoid colon and in the descending colon. - The examination was otherwise normal on direct and retroflexion views. - No specimens collected. - The exam was otherwise normal to the cecum. Recommendation: - Patient has a contact number available for emergencies. The signs and symptoms of potential delayed complications were discussed with the patient. Return to normal activities tomorrow. Written discharge instructions were provided to the patient. - High fiber diet. - Discharge patient to home. - Continue present medications. - Repeat colonoscopy is not recommended due to current age (66 years or older) for surveillance. - Return to referring physician. - The findings and recommendations were discussed with the patient. Procedure Code(s): --- Professional --- 16874, Colonoscopy, flexible; diagnostic, including collection of specimen(s) by brushing or washing, when performed (separate procedure) Diagnosis Code(s): --- Professional --- Z86.010, Personal history of colonic polyps K64.0, First degree hemorrhoids K57.30, Diverticulosis of large intestine without perforation or abscess without bleeding CPT copyright 2019 [employer]. All rights reserved. The codes documented in this report are preliminary and upon insurance coder review may be revised to meet current compliance requirements. Efren Preciado MD Efren Preciado MD 10/10/2020 9:14:58 AM Electronically signed by Efren Preciado MD Number of Addenda: 0 Note Initiated On: 10/10/2020 8:57 AM Estimated Blood Loss: Estimated blood loss: none.
[2020-10-10 09:35] VITALS: BP 169/79
== END 2020-10-10 09:51 | disposition home or self-care (01) ==
LOC: M OPP 07:30
PROVIDERS: ATTEND Internal Medicine Gastroenterology
DX: Z12.11 Encounter for screening for malignant neoplasm of colon (principal); Z86.010 Personal history of colon polyps; K64.0 First degree hemorrhoids; K57.30 Diverticulosis of large intestine without perforation or abscess without bleeding; I10 Essential (primary) hypertension; E78.5 Hyperlipidemia, unspecified; E11.9 Type 2 diabetes mellitus without complications; M19.90 Unspecified osteoarthritis, unspecified site; F32.9 Major depressive disorder, single episode, unspecified; J45.909 Unspecified asthma, uncomplicated; Z87.891 Personal history of nicotine dependence; Z79.84 Long term (current) use of oral hypoglycemic drugs; Z79.899 Other long term (current) drug therapy

== ENCOUNTER → 2022-09-05 | Outpatient (REF) | payer MEDICARE ==
[~2022-09-05] MED LIST changes: +ALBU2.5V10 INH; -ALBU83IN INH; -CLOB0.77 EX; +CLOB1SPR EX; +LEVO1TAB39 PO; -LEVO500T3 PO; +LOSA100T45 PO; -LOSA100T50 PO; -MONT10TA10 PO; +MONT10TA97 PO; -NS 1,000 ML IV ONE
== END ==
LOC: M LAB REF 16:20
PROVIDERS: ATTEND Internal Medicine
DX: R53.1 Weakness (principal); E86.0 Dehydration

== ENCOUNTER → 2022-09-08 | Outpatient (REF) | payer MEDICARE | LOC: M LAB REF 08:26 | PROVIDERS: ATTEND Internal Medicine | DX: R19.7 Diarrhea, unspecified (principal) ==

== ENCOUNTER → 2022-10-20 | Outpatient (CLI) | payer MEDICARE | LOC: M RAD 11:42 | PROVIDERS: ATTEND Internal Medicine | DX: R10.2 Pelvic and perineal pain (principal) ==

== ENCOUNTER → 2022-12-09 | Outpatient (CLI) | payer MEDICARE ==
[2022-12-09 15:41] LABS: BASO # 0.1 10^3/uL (0.0-0.2); BASO % 0.7 % (0.0-1.0); EOS # 0.2 10^3/uL (0.0-0.5); EOS % 1.7 % (0.0-3.0); HEMATOCRIT 44.9 % (36.0-47.0); HEMOGLOBIN 13.9 g/dl (12.0-15.5); LYMPH # 2.1 10^3/uL (1.5-5.0); MEAN CORPUSCULAR HEMOGLOBIN 28.5 pg (27.0-33.0); MEAN CORPUSCULAR VOLUME 92.2 fl (80.0-96.0); MONO # 0.8 10^3/uL (0.0-0.8); MONO % 8.8 % (2.0-8.0); NEUTROPHILS # 5.6 10^3/uL (1.5-8.5); NEUTROPHILS % 64.6 % (36.0-66.0); PLATELET COUNT, AUTOMATED 268 10^3/uL (150-450); RED BLOOD COUNT 4.87 10^6/uL (4.00-5.40); WHITE BLOOD COUNT 8.7 10^3/uL (4.0-10.0)
[2022-12-09 15:46] LABS: C REACTIVE PROTEIN QUANTITATIV < 0.40 MG/DL (<1.0)
[2022-12-09 15:53] LABS: URIC ACID 3.6 MG/DL (3.1-7.8)
[2022-12-09 15:58] LABS: ERYTHROCYTE SEDIMENTATION RATE 15 mm/hr (0-30)
== END ==
LOC: M PLALAB 12:08
PROVIDERS: ATTEND Physician Assistant Surgical
DX: M16.12 Unilateral primary osteoarthritis, left hip (principal)

== ENCOUNTER → 2023-01-30 | Outpatient (CLI) | payer MEDICARE ==
[~2023-01-30] MED LIST changes: +ISOVUE-300 61% 100ML VIAL As Ordered ONE; +LIDOCAINE 1% MDV 20ML VIAL As Ordered ONE; -LOSA100T45 PO; +LOSA100T46 PO; +methylPREDNISolone SUSP 40MG/ML 1ML VIAL (DEPO MEDROL) As Ordered ONE
== END ==
LOC: M RAD 12:06
PROVIDERS: ATTEND Physician Assistant Surgical
DX: M16.0 Bilateral primary osteoarthritis of hip (principal)
CPT/HCPCS: 20610; 77002; J1030; Q9967

== ENCOUNTER → 2023-02-06 | Outpatient (CLI) | payer MEDICARE | LOC: M RAD 12:16 | PROVIDERS: ATTEND Physician Assistant Surgical | DX: M51.36 Other intervertebral disc degeneration, lumbar region (principal) | CPT/HCPCS: 20610; 77002; J1030; Q9967 ==

== ENCOUNTER → 2023-03-19 | Outpatient (REF) | payer MEDICARE ==
[~2023-03-19] MED LIST changes: -ISOVUE-300 61% 100ML VIAL As Ordered ONE; -LIDOCAINE 1% MDV 20ML VIAL As Ordered ONE; -methylPREDNISolone SUSP 40MG/ML 1ML VIAL (DEPO MEDROL) As Ordered ONE
== END ==
LOC: M LAB REF 11:43
PROVIDERS: ATTEND Internal Medicine
DX: D64.9 Anemia, unspecified (principal)

== ENCOUNTER → 2023-05-27 | Outpatient (CLI) | payer MEDICARE ==
[2023-05-27 13:49] LABS: BASO # 0.1 10^3/uL (0.0-0.2); BASO % 0.9 % (0.0-1.0); EOS # 0.3 10^3/uL (0.0-0.5); EOS % 3.9 % (0.0-3.0); HEMOGLOBIN 13.3 g/dl (12.0-15.5); LYMPH # 1.4 10^3/uL (1.5-5.0); LYMPH % 17.9 % (24.0-44.0); MEAN CORPUSCULAR HEMOGLOBIN 28.5 pg (27.0-33.0); MEAN CORPUSCULAR HGB CONC 30.9 g/dl (32.0-36.5); MEAN CORPUSCULAR VOLUME 92.3 fl (80.0-96.0); MONO # 0.8 10^3/uL (0.0-0.8); NEUTROPHILS # 5.1 10^3/uL (1.5-8.5); PLATELET COUNT, AUTOMATED 231 10^3/uL (150-450); RED BLOOD COUNT 4.66 10^6/uL (4.00-5.40); WHITE BLOOD COUNT 7.6 10^3/uL (4.0-10.0)
[2023-05-27 14:39] LABS: ERYTHROCYTE SEDIMENTATION RATE 9 mm/hr (0-30)
[2023-05-27 16:02] LABS: URIC ACID 3.8 MG/DL (3.1-7.8)
[2023-05-27 16:04] LABS: C REACTIVE PROTEIN QUANTITATIV < 0.40 MG/DL (<1.0)
[2023-05-27 16:05] LABS: RHEUMATOID FACTOR QUANT < 3.5 IU/ML (<14)
== END ==
LOC: M PLALAB 10:01
PROVIDERS: ATTEND Physician Assistant Surgical
DX: M16.0 Bilateral primary osteoarthritis of hip (principal); M51.36 Other intervertebral disc degeneration, lumbar region; M47.896 Other spondylosis, lumbar region

== ENCOUNTER → 2023-07-02 | Outpatient (CLI) | payer MEDICARE | LOC: M PLARAD 14:54 | PROVIDERS: ATTEND Physician Assistant Surgical | DX: M51.36 Other intervertebral disc degeneration, lumbar region (principal); M47.896 Other spondylosis, lumbar region; M48.061 Spinal stenosis, lumbar region without neurogenic claudication ==

== ENCOUNTER 2023-09-22 11:52 | Emergency (ER) | payer MEDICARE ==
[~2023-09-22] VITALS: Ht 152.4 cm; Wt 79.5 kg
[2023-09-22 18:12] VITALS: BP 168/98; TEMP 98.2; O2SAT 98
== END 2023-09-22 18:13 | disposition home or self-care (01) ==
LOC: M ED 11:52
DX: S00.83XA Contusion of other part of head, initial encounter (principal); S80.01XA Contusion of right knee, initial encounter; W01.0XXA Fall on same level from slipping, tripping and stumbling without subsequent striking against object, initial encounter; I44.4 Left anterior fascicular block; I10 Essential (primary) hypertension; J45.909 Unspecified asthma, uncomplicated; Y92.481 Parking lot as the place of occurrence of the external cause; Y93.89 Activity, other specified; Y99.9 Unspecified external cause status; Z79.52 Long term (current) use of systemic steroids; Z79.810 Long term (current) use of selective estrogen receptor modulators (SERMs); Z79.02 Long term (current) use of antithrombotics/antiplatelets; Z79.899 Other long term (current) drug therapy

== ENCOUNTER → 2023-10-06 | Outpatient (REF) | payer MEDICARE | LOC: M LAB REF 13:17 | PROVIDERS: ATTEND Internal Medicine | DX: R06.02 Shortness of breath (principal); R42 Dizziness and giddiness ==

== ENCOUNTER → 2023-11-09 | Outpatient (CLI) | payer MEDICARE | LOC: M EKG 13:41 | PROVIDERS: ATTEND Internal Medicine | DX: R42 Dizziness and giddiness (principal) ==